=== PATIENT | female | born 1940 | race Caucasian/White ===

== ENCOUNTER 2023-09-25 23:34 | Inpatient (IN) | payer MEDICARE, OTHER, SELFPAY ==
[2023-09-25 16:04] VITALS: BP 130/76
[2023-09-25 16:05] VITALS: BP 130/76
[2023-09-25 16:21] LABS: % Basophils 0.5 % (0-2); % Eosinophils 0.9 % (0-6); % Immature Granulocytes 0.4 % (0-0.5); % Lymphocytes 14.5 % (20.5-51.1); % Monocytes 8.8 % (1.7-9.3); % Neutrophils 74.9 % (42.2-75.2); Absolute Basophils 0.1 10^3/uL (0-0.2); Absolute Eosinophils 0.1 10^3/uL (0-0.7); Absolute Lymphocytes 1.5 10^3/uL (1.2-3.4); Absolute Monocytes 0.9 10^3/uL (0.1-0.6); Absolute Neutrophils 7.9 10^3/uL (1.4-6.5); Hematocrit 35.1 % (37.0-47.0); Hemoglobin 11.5 g/dL (12.0-16.0); Mean Corp Hgb Conc. 32.8 g/dL (33.0-37.0); Mean Corpuscular Hgb 29.5 pg (27.0-31.0); Mean Platelet Volume 8.6 fL (7.4-10.4); Nucleated Red Blood Cells % 0 %; Platelet Count 223 10^3/uL (130-400); Red Cell Dist. Width 14.2 % (11.5-14.5); White Blood Cell Count 10.5 10^3/uL (4.8-10.8)
[2023-09-25 16:35] LABS: Blood Urea Nitrogen 29 mg/dl (7-17); Calcium 9.3 mg/dl (8.4-10.2); Carbon Dioxide 23 mmol/L (22-30); Chloride 103 mmol/L (98-107); Estimated Creatinine Clearance 38 ml/min; Glucose 91 mg/dl (70-99); Sodium 136 mmol/L (135-145); eGFR 50.48
[2023-09-25 17:38] VITALS: BP 144/76
[2023-09-25 17:48] LABS: Urine Albumin 2+ (Neg - Trace); Urine Bilirubin Negative (Negative); Urine Character Very Cloudy (Clear); Urine Color Yellow; Urine Glucose Negative (Negative); Urine Ketone Negative (Negative); Urine Leukocyte 2+ (Negative); Urine Nitrite Positive (Negative); Urine Occult Blood 4+ (Negative); Urine Urobilinogen Negative (Neg - 1+)
[2023-09-25 17:56] LABS: Urine Bacteria Moderate (Negative); Urine Red Blood Cell 30-40 /HPF (0-2); Urine Squamous Cell 0-2 /LPF (Few); Urine White Cell 90-100 /HPF (0-5)
[2023-09-25 18:00] VITALS: BP 130/86
[2023-09-25 19:00] VITALS: BP 144/78
[2023-09-25] MEDS: MORPHINE SULFATE 2 MG IV (20:13)
[2023-09-25] MEDS: ROCEPHIN 1000 MG IV (20:13)
--- NOTE | 2023-09-25 20:28 | ED.GENMED ---
History of Present Illness
General
Chief Complaint: Urinary Symptoms
Source: patient
Time Seen by Provider: 09/25/23 19:43
Travel History
Have you had any contact with someone who has COVID-19?: No
Do you have any symptoms of coronavirus? Fever > 100 degrees, chills, cough, shortness of breath, sore throat, loss of taste or smell, muscle aches, or headache?: No
History of Present Illness
History of Present Illness:
83-year-old female with past medical history of hypertension, hyperlipidemia, essential tremor, previous GI bleeding, left ureteral dysfunction presenting to the emergency department for evaluation of generalized weakness, difficulty ambulating,
left flank pain and dysuria/urinary frequency. Patient states she is prone to urinary tract infections and believes to have another 1. She denies any fevers, nausea, vomiting, bowel changes. She notes that she has been in and out of the hospital
recently as well as a few rehab facilities following her hospitalizations. She follows with urology, Dr. Rodas, and has had multiple urological procedures done in the past. No other concerns at this time.
Past History
Past History
ED Past Medical History: HTN, Hypercholesterolemia, Psychiatric, Other (lumbar compr fx) and Other (kidney stones)
ED Past Surgical History: Appendectomy, Orthopedic (Right wrist ORIF, vertebraplasty), Tonsilectomy, Urological and Other (Hernia repair, cataract surgery)
Social History
Tobacco: Non-smoker
Alcohol: Occasional
Drug: None
Personal: Single
Living: alone
Employment: Retired
Review of Systems
Review of Systems
All Other Systems: ROS reviewed and negative except as documented in HPI and ROS
Phy Exam
Physical Exam
Physical Exam:
GENERAL: Alert , in no apparent distress, essential tremor
EYE: clear conjunctiva b/l
HEAD: NCAT
ENT: o/p clr, mmm.
CARDIAC: Regular rate and rhythm .
LUNGS: Clear breath sounds bilaterally, no acute respiratory distress, no wheezes/rales/rhonchi
ABDOMEN: Soft, without focal tenderness, no r/g, no cvat
NEUROLOGICAL: Alert and oriented x 3
SKIN: Warm and dry, skin intact.
MUSCULOSKELETAL: No edema, well perfused.
PSYCH: Normal and appropriate interaction.
Scores
Heart Failure Risk
Heart Failure Risk Score: Not Applicable
Heart Score for Chest Pain Patients
STEMI patient?: Not applicable
Withdrawal Assessment of Alcohol
Withdrawal Assessment Completed?: Not applicable
Course
Orders/Labs/Results
Orders:
Orders
09/25/23 16:10
Basic Metabolic Panel Urgent
Complete Blood Count/With Diff Urgent
Urinalysis Reflex To Culture Urgent
Date Specimen was Collected: 09/25/23
Time Specimen was Collected: 16:07
Urine Microscopic Reflex Cult Urgent
Urine Culture Urgent
CARLIE Source: U
Specimen Description:
Date Specimen was Collected: 09/25/23
Time Specimen was Collected: 16:07
09/25/23 19:43
CT Abd/pel Without Iv Or Oral Urgent
Comment:
Reason For Exam: left flank pain, UTI, pyelo vs stone?
CefTRIAXone [Rocephin] 1,000 mg IV NOW STA
09/25/23 19:49
Morphine Sulfate 2 mg IV NOW STA
09/25/23 20:10
Sterile Water [Sterile Water For Injection] 10 ml .ROUTE .STK-MED ONE
Abnormal Lab Results
09/25/23
16:10
RBC 3.90 L 10^6/uL
(4.20-5.40)
Hgb 11.5 L g/dL
(12.0-16.0)
Hct 35.1 L %
(37.0-47.0)
MCHC 32.8 L g/dL
(33.0-37.0)
Absolute Neuts (auto) 7.9 H 10^3/uL
(1.4-6.5)
Absolute Monos (auto) 0.9 H 10^3/uL
(0.1-0.6)
Lymphocytes % 14.5 L %
(20.5-51.1)
BUN 29 H mg/dl
(7-17)
Creatinine 1.1 H mg/dL
(0.6-1.0)
Ur Occult Blood Reflex 4+ A
(Negative)
Urine Nitrite (Reflex) Positive A
(Negative)
Leukocyte Esterase Rfl 2+ A
(Negative)
Urine RBC 30-40 A /HPF
(0-2)
Urine WBC (Reflex) 90-100 A /HPF
(0-5)
Urine Bacteria (Reflex) Moderate A
(Negative)
Urine Albumin (Reflex) 2+ A
(Neg - Trace)
09/25/23 16:10
09/25/23 16:10
Vital Signs
Initial and Last Documented VS:
Initial Vital Signs
Temp Pulse Resp BP Pulse Ox
98.1 F 64 18 130/76 96
09/25/23 16:04 09/25/23 16:04 09/25/23 16:04 09/25/23 16:04 09/25/23 16:04
Last Documented Vital Signs
Temp Pulse Resp BP Pulse Ox
98.1 F 64 18 144/78 92
09/25/23 16:04 09/25/23 16:04 09/25/23 16:04 09/25/23 19:00 09/25/23 19:45
MDM/Problems Addressed
Differential Diagnosis Includes:
Cystitis, pyelonephritis, renal/ureteral colic, infected kidney stone, acute kidney injury
MDM/Problems Addressed:
83-year-old female presenting emergency department for evaluation of left-sided flank pain, generalized weakness and urinary symptoms. History of urinary tract infections. Labs and urine have been ordered from triage and there is no leukocytosis,
patient's renal function is at her baseline, urinalysis reveals nitrite positive urine with 90-100 WBCs. I added on a CT scan of the abdomen and pelvis to rule out stones. Given her age and chronic medical conditions patient may need admission for
IV antibiotics and monitoring. Reassessment following
*Radiology
Radiology exam reviewed: radiology read reviewed
*Pulse Oximetry
Patient hypoxic: no
*Critical Care Note
Total Time (30-74mins, 75-104mins- exclusive of procedures): Not Applicable
Data Reviewed
Review of Other/Old Records Reveals: Labs (Patient's previous urine cultures show Kristin albicans. She was treated for similar in the past with antibiotics with improvement.) and Records
Source: patient
Patient Management
Discussion with other providers: Hospitalist
Escalation/DeEscalation of care consider admission/obs:
Due to patient's age and chronic UTIs combined with her anatomical disorders leading to your Zak tract infections I do feel would be best for patient to be admitted for IV antibiotics and monitoring. Patient is in agreement with plan. Hospitalist
team is aware and accepts for continued evaluation and treatment.
ED Attending Note
-
Portions of this chart may have been created with voice recognition software.� Occasional wrong word or��sound alike� substitutions may have occurred due to the inherent limitations of voice recognition software.
Discharge Plan
Departure
Patient Disposition: Admit
Date of Disposition: 09/25/23
Time of Disposition: 21:10
Presentation/result/management discussed w/ accepting MD/DO: Hospitalist
Discharge Problem:
Pyelonephritis
Prescriptions:
No Action
melatonin 10 MG tablet
10 mg PO HS
PreserVision AREDS 1 CAP capsule
1 cap PO BID
gabapentin 300 MG capsule
300 mg PO BID
primidone 50 mg Tablet
50 mg PO DAILY
atorvastatin [Lipitor] 10 mg Tablet
10 mg PO DAILY
propranolol 60 mg Capsule,Extended Release 24 Hr
60 mg PO DAILY
sertraline 100 mg Tablet
100 mg PO DAILY
Theragen Tablet
1 tab PO DAILY
ciprofloxacin HCl [Cipro] 500 mg Tablet
500 mg PO BID
calcium carbonate [Calcium 600] 600 mg calcium (1,500 mg) Tablet
600 mg PO DAILY
ibuprofen [Advil] 200 mg Tablet
200 mg PO Q8HPRN PRN (Reason: mild pain)
estradiol [Estrace] 0.01 % (0.1 mg/gram) Cream
1 appful VAGINAL Q48H
lutein 20 mg Capsule
20 mg PO DAILY
cholecalciferol (vitamin D3) [Vitamin D3] 25 mcg (1,000 unit) Tablet
25 mcg PO DAILY
Refresh Optive 0.5-0.9 % Drops
1 drp BOTH EYES QIDPRN PRN (Reason: dryness)
Referrals:
Nubia Mix CRNP [Family Provider] -
Interventions
Interventions:
*Risk Screen - Suicide Last Done: 09/25/23 16:05
*General Assessment Last Done: 09/25/23 16:05
*Neglect/Abuse Screening Last Done: 09/25/23 16:05
*ED COVID-19 Vaccine History Last Done: 09/25/23 16:05
ED-Female Genitourinary Assessment Last Done: 09/25/23 16:08
Discharge Date and Time
Print Language: MONGOLIAN
--- NOTE | 2023-09-25 23:43 | HPS.HSE ---
Family Physician
-
Family Physician: NAPOLEON Ohara
Chief Complaint
-
urinary symptoms
History of Present Illness
83-year-old female with past medical history of kidney stones, left ureteral stricture with prior left ureteral stent, frequent UTIs, hypertension, hyperlipidemia, lumbar compression fractures, anxiety/depression, obesity, neuropathy, osteoporosis,
essential tremor, presenting with generalized weakness, difficulty ambulating, burning with urination increased urinary frequency since yesterday. She did have some slight left flank pain earlier. Denies any blood in the urine or urinary
retention. Patient denies fevers or nausea or vomiting. She does some diarrhea yesterday which is since resolved.
She drinks alcohol occasionally. Denies smoking. She has chronic tremor worse in the right hand which is at baseline.
Medical History
Past Medical History
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
tremor,)
Past Surgical History: Reports Other (Appendectomy, Orthopedic (Right wrist ORIF, vertebraplasty), Tonsilectomy, Urological and Other (Hernia repair, cataract surgery))
Social History
Tobacco: Non-smoker
Alcohol: Occasional
Drug: None
Family History
Family History: Not pertinent
Allergies / Home Medications
Allergies reflects when Allergies were last updated in [facility].
Home Medications with original date entered in [facility]
Allergy/Medication List:
Allergies
Allergy/AdvReac Type Severity Reaction Status Date / Time
crab Allergy SOFT Verified 09/25/23 23:08
SHELL-HIVES
No Known Drug Allergies Allergy NA Verified 09/25/23 23:08
shrimp Allergy ABDOMINAL Verified 09/25/23 23:08
PAIN/FLUSHING
Home Medications
melatonin 10 mg tablet 10 mg PO HS 10/11/19
vitamins A,C,V-turv-bosber 4,296 mcg-226 mg-90 mg capsule (PreserVision AREDS) 1 cap PO BID Supplement 10/07/20
gabapentin 300 mg capsule 300 mg PO BID Neurological Condition 07/24/21
atorvastatin 10 mg tablet (Lipitor) 10 mg PO DAILY 09/25/23
calcium carbonate (Calcium 600) 600 mg PO DAILY 09/25/23
carboxymethylcellulose 0.5 %-glycerin 0.9 % eye drops (Refresh Optive) 1 drp BOTH EYES QIDPRN PRN dryness 09/25/23
cholecalciferol (vitamin D3) 25 mcg (1,000 unit) tablet (Vitamin D3) 25 mcg PO DAILY 09/25/23
ciprofloxacin HCl 500 mg tablet (Cipro) 500 mg PO BID 09/25/23
estradiol 0.01% (0.1 mg/gram) vaginal cream (Estrace) 1 appful vaginal Q48H 09/25/23
ibuprofen 200 mg tablet (Advil) 200 mg PO Q8HPRN PRN mild pain 09/25/23
lutein 20 mg capsule 20 mg PO DAILY 09/25/23
primidone 50 mg tablet 50 mg PO DAILY 09/25/23
propranolol 60 mg capsule,24 hr,extended release 60 mg PO DAILY 09/25/23
sertraline 100 mg tablet 100 mg PO DAILY 09/25/23
therapeutic multivitamin 1 tab PO DAILY 09/25/23
Review of Systems
-
History Source: Patient
A 12 point ROS was completed and negative except as noted: Yes
Constitutional: Reports No Symptoms
EENT: Reports No Symptoms
Respiratory: Reports No Symptoms
Cardiac: Reports No Symptoms
Abdomen/GI: Reports No Symptoms
: Reports See HPI
Musculoskeletal: Reports No Symptoms
Skin: Reports No Symptoms
Neurological: Reports No Symptoms
Endocrine: Reports No Symptoms
Hematologic/Lymphatic: Reports No Symptoms
Psych: Reports No Symptoms
Physical Exam
Vital Signs
Vital Signs
Temp Pulse Resp BP Pulse Ox
98.1 F 64 18 144/78 92
09/25/23 16:04 09/25/23 16:04 09/25/23 16:04 09/25/23 19:00 09/25/23 19:45
Physical Exam
General: Well Developed, Well Nourished and No Apparent Distress
HEENT: NormoCephalic, Moist mucous membranes and Atraumatic
Respiratory: Clear
Cardiac: S1/S2 and Regular Rhythm; No Murmur or Rub
GI: Soft, Non Tender, Non Distended and Normal Bowel Sounds; No Organomegaly
Rectal: Deferred by Provider
Musculoskeletal: No Clubbing, No Cyanosis and No Edema
Skin: No Rash
Neuro: Nonfocal/grossly intact
Laboratory Results
-
09/25/23 16:10
09/25/23 16:10
Laboratory Results
Total Bilirubin Cancelled 09/25/23 16:10
AST Cancelled 09/25/23 16:10
ALT Cancelled 09/25/23 16:10
Alkaline Phosphatase Cancelled 09/25/23 16:10
Data Reviewed
-
Lab Data: Labs Reviewed by me
Old Records: Reviewed
Impression/Plan
-
IMPRESSION:
PLAN:
# Complicated UTI
# Worsening of chronic left hydronephrosis
# Congenital UPJ left
-UA shows 9200 WBC, +2 leukocyte esterase, nitrites
-CT abdomen pelvis shows mid pole large stable renal pelvis calculi measuring 2.5 cm without ureteral calculus, mild distention of right ureter/intrarenal collecting system similar to prior, chronic moderate hydronephrosis increased since prior
examination, 2 tiny submillimeter calculi present within the distended extrarenal pelvis, abrupt transition between renal pelvis and proximal ureter consistent with element of congenital UPJ without evidence of definitive ureteral stone
-Check urine culture
-IV fluids
-Ceftriaxone
-Urology consulted for potential stent if no improvement
#Renal calculi
#History of left ureteral stricture prior left ureteral stent
#Chronic kidney disease
-Renal function at baseline
Essential hypertension
Hyperlipidemia
-Continue statin
History of lumbar compression fractures
Anxiety/depression
-Continue sertraline
Obesity
Neuropathy
-Continue gabapentin
Essential tremor
-Continue propranolol, primidone
Osteoporosis
Full code
DVT prophylaxis�heparin
Regular diet
[2023-09-26] VITALS (10 sets, daily range): BP systolic 109–156; BP diastolic 59–93; BMI 34.5; BMI 35.4
[2023-09-26] MEDS: NSS 1000 IV (02:03)
[2023-09-26 05:21] LABS: % Basophils 0.6 % (0-2); % Eosinophils 2.1 % (0-6); % Immature Granulocytes 0.4 % (0-0.5); % Lymphocytes 17.7 % (20.5-51.1); % Monocytes 9.4 % (1.7-9.3); % Neutrophils 69.8 % (42.2-75.2); Absolute Basophils 0.1 10^3/uL (0-0.2); Absolute Eosinophils 0.2 10^3/uL (0-0.7); Absolute Lymphocytes 1.5 10^3/uL (1.2-3.4); Absolute Monocytes 0.8 10^3/uL (0.1-0.6); Absolute Neutrophils 5.9 10^3/uL (1.4-6.5); Hematocrit 32.7 % (37.0-47.0); Hemoglobin 10.5 g/dL (12.0-16.0); Mean Corp Hgb Conc. 32.1 g/dL (33.0-37.0); Mean Corpuscular Hgb 29.5 pg (27.0-31.0); Mean Corpuscular Volume 91.9 fL (81.0-99.0); Mean Platelet Volume 8.5 fL (7.4-10.4); Nucleated Red Blood Cells % 0 %; Platelet Count 179 10^3/uL (130-400); Red Blood Cell Count 3.56 10^6/uL (4.20-5.40); Red Cell Dist. Width 13.8 % (11.5-14.5); White Blood Cell Count 8.4 10^3/uL (4.8-10.8)
--- NOTE | 2023-09-26 07:01 | W.PN.HOSP.TC ---
Addendum entered and electronically signed by Chip De León MD 09/26/23 07:56:
Patient still serum calcium at 5.6 actually corrected to patient's hypoalbuminemia of only 2.0 creates a corrected calcium of 7.19 I will measure a ionized calcium but would not replete IV calcium at this point as patient also on ceftriaxone and
will have interaction
Will replete hypokalemia with potassium rider
Nongap metabolic acidosis with a bicarb of 16 give sodium bicarb.
Original Note:
Today's Communication/Plan
-
Continue empiric antibiotic coverage
Await urine culture results
Await urology input in regards to chronic UPJ obstruction and flank pain
Continue IV fluids
Assessment / Plan
Assessment / Plan
83-year-old female with past medical history of kidney stones, left ureteral stricture with prior left ureteral stent, frequent UTIs, hypertension, hyperlipidemia, lumbar compression fractures, anxiety/depression, obesity, neuropathy, osteoporosis,
essential tremor, presenting with generalized weakness, difficulty ambulating, burning with urination increased urinary frequency since yesterday. She did have some slight left flank pain earlier. Denies any blood in the urine or urinary
retention. Patient denies fevers or nausea or vomiting. She does some diarrhea yesterday which is since resolved.
She drinks alcohol occasionally. Denies smoking. She has chronic tremor worse in the right hand which is at baseline.
# Complicated UTI
# Worsening of chronic left hydronephrosis
# Congenital UPJ left
-UA shows 9200 WBC, +2 leukocyte esterase, nitrites
-CT abdomen pelvis shows mid pole large stable renal pelvis calculi measuring 2.5 cm without ureteral calculus, mild distention of right ureter/intrarenal collecting system similar to prior, chronic moderate hydronephrosis increased since prior
examination, 2 tiny submillimeter calculi present within the distended extrarenal pelvis, abrupt transition between renal pelvis and proximal ureter consistent with element of congenital UPJ without evidence of definitive ureteral stone
-Check urine culture
-IV fluids to continue
-Ceftriaxone
-Urology consulted for potential stent if no improvement
#Renal calculi
#History of left ureteral stricture prior left ureteral stent
#Chronic kidney disease
-Renal function at baseline
Essential hypertension
Hyperlipidemia
-Continue statin
History of lumbar compression fractures
Anxiety/depression
-Continue sertraline
Obesity
Neuropathy
-Continue gabapentin
Essential tremor
-Continue propranolol, primidone
Osteoporosis
Full code
DVT prophylaxis�heparin
Regular diet
Anticipated Discharge: Within 24 hours
Subjective/Interval History
-
Date of Service: September 26, 2023
Comparison discomfort in her shoulders and her neck from laying in the ER later overnight as her only complaint denies any abdominal pain presently
Objective Data
-
Labs:
Laboratory Results
09/26/23 09/26/23
05:10 06:08
WBC 8.4
Hgb 10.5 L
Hct 32.7 L
Plt Count 179
Sodium Cancelled Pending
Potassium Cancelled Pending
Chloride Cancelled Pending
Carbon Dioxide Cancelled Pending
BUN Cancelled Pending
Creatinine Cancelled Pending
Glucose Cancelled Pending
Calcium Cancelled Pending
Total Bilirubin Cancelled Pending
AST Cancelled Pending
ALT Cancelled Pending
Alkaline Phosphatase Cancelled Pending
Vital Signs:
Vital Signs
Temp Pulse Resp BP Pulse Ox
98 F 66 18 126/74 94
09/26/23 06:19 09/26/23 06:19 09/26/23 06:19 09/26/23 06:19 09/26/23 06:19
I&O
09/25/23 09/26/23 09/27/23
06:59 06:59 06:59
Output Total 200 / 200
Balance -200 / -200
Review of Systems
-
History Source: Patient
Genitourinary: Reports No Symptoms and Frequency
Musculoskeletal: Reports Muscle Pain
Physical Exam
-
General: Well Developed
HEENT: Normocephalic
Respiratory: Clear to Auscultation
Cardiac: Regular Rhythm
GI: Soft, Nontender and Nondistended
Psych: Calm
Data Reviewed
-
Total Time Spent with Patient (in minutes): 45
Medical Tests (Nuc Med, Echo etc): Report Reviewed by me (CT abdomen shows increasing left chronic moderate hydronephrosis from prior prior congenital UPJ obstruction)
Labs: Labs Reviewed by me (White count 8.4/hemoglobin 10.5/pending creatinine at presentation yesterday on admission 1.1 at her baseline)
[2023-09-26 07:16] LABS: ALT (SGPT) < 10 U/L (0-35); AST (SGOT) 20 U/L (14-36); Alkaline Phosphatase 45 U/L (38-126); Blood Urea Nitrogen 16 mg/dl (7-17); Calcium 5.6 mg/dl (8.4-10.2); Carbon Dioxide 16 mmol/L (22-30); Chloride 120 mmol/L (98-107); Estimated Creatinine Clearance 69 ml/min; Glucose 56 mg/dl (70-99); Potassium 2.6 mmol/L (3.5-5.1); Sodium 141 mmol/L (135-145); Total Bilirubin 0.3 mg/dl (0.2-1.3); Total Protein 4.4 g/dl (6.3-8.2); eGFR > 60.00
[2023-09-26] MEDS: KCL 270 MEQ IV (10:14)
[2023-09-26] MEDS: HEPARIN 5000 UNITS SC ×2 (10:16→20:22)
[2023-09-26] MEDS: MYSOLINE 50 MG PO (10:17)
[2023-09-26] MEDS: LIPITOR 10 MG PO (10:17)
[2023-09-26] MEDS: INDERAL LA 60 MG PO (10:17)
[2023-09-26] MEDS: OSCAL CAL 500 500 MG PO (10:18)
[2023-09-26] MEDS: ZOLOFT 100 MG PO (10:18)
[2023-09-26] MEDS: OCUVITE SOFTGEL 1 CAP PO ×2 (10:18→20:23)
[2023-09-26] MEDS: SODIUM BICARBONATE 1075 MEQ IV ×2 (10:18→20:22)
[2023-09-26] MEDS: THERAGRAN 1 TABLET PO (10:18)
[2023-09-26] MEDS: NEURONTIN 300 MG PO ×2 (10:18→20:24)
[2023-09-26] MEDS: VITAMIN D3 (cholecalciferol) 25 MCG PO (10:18)
[2023-09-26 10:57] LABS: Ionized Calcium 1.14 mMOL/L (1.15-1.33)
[2023-09-26] MEDS: ESTRACE 0.01% VAGINAL CREAM VAG (10:57)
[2023-09-26 12:20] LABS: Magnesium 1.3 mg/dl (1.6-2.3)
--- NOTE | 2023-09-26 12:23 | W.PN.URO.CBU ---
Today's Communication / Plan
-
per hospitalist no guintervention indicated
Assessment / Plan
-
change in mental staus woth electrolyte dosorders but no pointing focal gu etilolgioes for now pt is progreesing and not in need of perc tube or jj stent iterventions If stable woulf discharge on targetd po abs and have pt foow ith dr bianchi
for definitive tx of renal diseases
Diagnosis
-
Date of Service: September 26, 2023
-
Patient Diagnosis:uti porly fnctioniong left kidney and rt [place] no fervc hils but mental staus change no colic no [id number]
Post Op Day:
Subjective
-
asx from [facility]
Objective
-
Vital Signs
Temp Pulse Resp BP Pulse Ox
98.1 F 71 16 126/93 100
09/26/23 10:09 09/26/23 10:09 09/26/23 10:09 09/26/23 10:09 09/26/23 11:19
Intake and Output
09/25/23 09/26/23 09/27/23
06:59 06:59 06:59
Intake Total 575 / 575
Output Total 200 / 200
Balance -200 / -200 575 / 575
Intake:
IV fluids (Total) 575 / 575
NSS 575 / 575
Output:
Urine, Voided 200 / 200
Laboratory Results
09/26/23 05:10
09/26/23 06:08
Review of Systems
-
Abdomen/GI: No Symptoms
: No Symptoms
Physical Exam
-
General - well developed, well nourished, no acute distress
Chest - clear bilaterally
Abdomen - soft, non-tender, positive bowel sounds, no CVAT, no incisional pain or distention
Genitalia - normal
Rectal - normal
Skin - warm & dry with no rash
Neuro - AOx3, no motor deficits
Extremities - no clubbing, no cyanosis, no edema
Incision - clean, dry
Dressing - clean, dry, intact
Care Review
Data Reviewed
Discussed with: Hospitalist and Nursing
CT Scan: Image Pers Reviewed
[2023-09-26] MEDS: MAGNESIUM SULFATE 50 IV (13:09)
[2023-09-26] MEDS: ROCEPHIN 1000 MG IV (20:24)
[2023-09-26] MEDS: STERILE WATER FOR INJECTION 10 ML IV (20:26)
[2023-09-26] MEDS: MELATONIN 10 MG PO (20:30)
[2023-09-27 07:00] VITALS: BP 138/74
[2023-09-27] MEDS: NEURONTIN 300 MG PO ×2 (07:41→20:19)
[2023-09-27] MEDS: OSCAL CAL 500 500 MG PO (07:42)
[2023-09-27] MEDS: HEPARIN 5000 UNITS SC ×2 (07:42→20:19)
[2023-09-27] MEDS: VITAMIN D3 (cholecalciferol) 25 MCG PO (07:42)
[2023-09-27] MEDS: MYSOLINE 50 MG PO (07:42)
[2023-09-27] MEDS: ZOLOFT 100 MG PO (07:42)
[2023-09-27] MEDS: THERAGRAN 1 TABLET PO (07:42)
[2023-09-27] MEDS: OCUVITE SOFTGEL 1 CAP PO ×2 (07:42→20:20)
[2023-09-27] MEDS: LIPITOR 10 MG PO (07:42)
[2023-09-27] MEDS: INDERAL LA 60 MG PO (07:42)
[2023-09-27 07:44] LABS: Hematocrit 33.6 % (37.0-47.0); Hemoglobin 11.2 g/dL (12.0-16.0); Mean Corp Hgb Conc. 33.3 g/dL (33.0-37.0); Mean Corpuscular Hgb 29.9 pg (27.0-31.0); Mean Corpuscular Volume 89.6 fL (81.0-99.0); Platelet Count 196 10^3/uL (130-400); Red Blood Cell Count 3.75 10^6/uL (4.20-5.40); Red Cell Dist. Width 13.4 % (11.5-14.5); White Blood Cell Count 5.6 10^3/uL (4.8-10.8)
--- NOTE | 2023-09-27 08:05 | W.PN.HOSP.TC ---
Today's Communication/Plan
-
Continue present course of ceftriaxone awaiting culture results
Spoke to urology [facility] consultant
Will need to replete magnesium, bicarb continue IV fluids awaiting pending labs
Treat constipation
Assessment / Plan
Assessment / Plan
83-year-old female with past medical history of kidney stones, left ureteral stricture with prior left ureteral stent, frequent UTIs, hypertension, hyperlipidemia, lumbar compression fractures, anxiety/depression, obesity, neuropathy, osteoporosis,
essential tremor, presenting with generalized weakness, difficulty ambulating, burning with urination increased urinary frequency since yesterday. She did have some slight left flank pain earlier. Denies any blood in the urine or urinary
retention. Patient denies fevers or nausea or vomiting. She does some diarrhea yesterday which is since resolved.
She drinks alcohol occasionally. Denies smoking. She has chronic tremor worse in the right hand which is at baseline.
# Complicated UTI
# Worsening of chronic left hydronephrosis
# Congenital UPJ left
-UA shows 9200 WBC, +2 leukocyte esterase, nitrites
-CT abdomen pelvis shows mid pole large stable renal pelvis calculi measuring 2.5 cm without ureteral calculus, mild distention of right ureter/intrarenal collecting system similar to prior, chronic moderate hydronephrosis increased since prior
examination, 2 tiny submillimeter calculi present within the distended extrarenal pelvis, abrupt transition between renal pelvis and proximal ureter consistent with element of congenital UPJ without evidence of definitive ureteral stone
-Check urine culture
-IV fluids to continue
-Ceftriaxone
-Urology consulted for potential stent if no improvement
#Renal calculi
# Nongap metabolic acidosis
-Hypocalcemia with corrected calcium to 7.2 noting albumin of 2.0
-Repleted hypomagnesemia 1.3 pending labs today
-Await today's labs adjust IV fluids
#History of left ureteral stricture prior left ureteral stent
#Chronic kidney disease
-Renal function at baseline
Essential hypertension
Hyperlipidemia
-Continue statin
History of lumbar compression fractures
Anxiety/depression
-Continue sertraline
Obesity
Neuropathy
-Continue gabapentin
Essential tremor
-Continue propranolol, primidone
Osteoporosis
Full code
DVT prophylaxis�heparin
Regular diet
Anticipated Discharge: 24 - 48 hours
Subjective/Interval History
-
Date of Service: September 27, 2023
Patient has not had a bowel in days denies flank pain pleasingly
Objective Data
-
Labs:
Laboratory Results
09/27/23
07:12
WBC Pending
Hgb Pending
Hct Pending
Plt Count Pending
Sodium Pending
Potassium Pending
Chloride Pending
Carbon Dioxide Pending
BUN Pending
Creatinine Pending
Glucose Pending
Calcium Pending
Vital Signs:
Vital Signs
Temp Pulse Resp BP Pulse Ox
97.5 F 64 18 138/74 93
09/27/23 07:00 09/27/23 07:00 09/27/23 07:00 09/27/23 07:00 09/27/23 07:00
I&O
09/26/23 09/27/23 09/28/23
06:59 06:59 06:59
Intake Total 675 / 675
Output Total 200 / 200 150 / 150
Balance -200 / -200 525 / 525
Review of Systems
-
History Source: Patient
Constitutional: Reports No Symptoms
Respiratory: Reports No Symptoms
Cardiac: Reports No Symptoms
Abdomen/GI: Reports Constipated
Physical Exam
-
General: Well Nourished
HEENT: Normocephalic
Respiratory: Clear to Auscultation
Cardiac: Regular Rhythm
GI: Soft, Nontender and Nondistended
Neuro: Tremors
Psych: Calm
Data Reviewed
-
Total Time Spent with Patient (in minutes): 50
Medical Tests (Nuc Med, Echo etc): Report Reviewed by me
Labs: Labs Reviewed by me (Pending today's labs/had low magnesium one 1.3 yesterday/ionized calcium 1.14/albumin 2.0 with a calcium of 5.6/corrected to 7.2/)
[2023-09-27 08:17] LABS: Blood Urea Nitrogen 16 mg/dl (7-17); Calcium 8.4 mg/dl (8.4-10.2); Carbon Dioxide 27 mmol/L (22-30); Chloride 103 mmol/L (98-107); Estimated Creatinine Clearance 52 ml/min; Glucose 82 mg/dl (70-99); Sodium 135 mmol/L (135-145); eGFR > 60.00
[2023-09-27] MEDS: SENOKOT-S 1 TABLET PO (09:20)
[2023-09-27] MEDS: SODIUM BICARBONATE 1075 MEQ IV (10:03)
--- NOTE | 2023-09-27 10:57 | CM ---
Reviewed chart, met with patient to obtain information for assessment. Patient stated that she lives alone in [facility]. She was at their rehab ([facility]) for a few weeks and recently came back home. She described herself as in need of
assistance with ADLs, personal care, bathing, dressing and ambulates with a rollator and a scooter for longer distances. She gets one meal a day at the community and she relies on an aide who her daughter hired 7 days a week for all ADLs, bathing,
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
She denied any other DME besides the Rollator and electric w/c.
Patient has a prescription plan and uses [facility] in [place] for all of her medications.
Her PCP is Evelin BENDER
Patient stated that she is hoping to be able to return home with her aides when she is medically cleared for discharge. She stated that if there are any concerns or questions about discharge planning, she would like to defer to her daughter, Emilee,
or her son if Emilee is not available.
Plan: Case management will continue to follow and assist with discharge planning. Tentative plan is for patient to return home with her daily aides and support of her daughter who lives close. Patient hoping to be able to avoid rehab.
--- NOTE | 2023-09-27 13:12 | W.PN.URO.CBU ---
Today's Communication / Plan
-
no gu intervention
Assessment / Plan
-
change in mental staus woth electrolyte dosorders but no pointing focal gu etilolgioes for now pt is progreesing and not in need of perc tube or jj stent iterventions If stable woulf discharge on targetd po abs and have pt foow ith dr bianchi
for definitive tx of renal diseases
Diagnosis
-
Date of Service: September 27, 2023
-
Patient Diagnosis:
Post Op Day:
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
Post Op Day:
Subjective
-
feels better
Objective
-
Vital Signs
Temp Pulse Resp BP Pulse Ox
97.5 F 64 18 138/74 93
09/27/23 07:00 09/27/23 07:00 09/27/23 07:00 09/27/23 07:00 09/27/23 07:00
Intake and Output
09/26/23 09/27/23 09/28/23
06:59 06:59 06:59
Intake Total 675 / 675
Output Total 200 / 200 150 / 150
Balance -200 / -200 525 / 525
Intake:
Oral fluids 100 / 100
IV fluids (Total) 575 / 575
NSS 575 / 575
Output:
Urine, Voided 200 / 200 150 / 150
Other:
Number of approximated LARGE 1
amounts of urine
How many times incontinent 1
SMALL amount urine
How many times incontinent 1
MODERATE amount urine
How many times incontinent 1
SATURATED amount urine
Laboratory Results
09/27/23 07:12
09/27/23 07:12
Review of Systems
-
: No Symptoms
Physical Exam
-
General - well developed, well nourished, no acute distress
Chest - clear bilaterally
Abdomen - soft, non-tender, positive bowel sounds, no CVAT, no incisional pain or distention
Genitalia - normal
Rectal - normal
Skin - warm & dry with no rash
Neuro - AOx3, no motor deficits
Extremities - no clubbing, no cyanosis, no edema
Incision - clean, dry
Dressing - clean, dry, intact
Care Review
Data Reviewed
Discussed with: Hospitalist
CT Scan: Image Pers Reviewed
[2023-09-27 15:00] VITALS: BP 137/68
[2023-09-27] MEDS: STERILE WATER FOR INJECTION 10 ML IV (20:18)
[2023-09-27] MEDS: ROCEPHIN 1000 MG IV (20:18)
[2023-09-27] MEDS: MELATONIN 10 MG PO (20:20)
[2023-09-27] MEDS: MOTRIN 200 MG PO (20:21)
[2023-09-27 23:59] VITALS: BP 131/64
[2023-09-28 05:54] LABS: Hematocrit 32.3 % (37.0-47.0); Hemoglobin 10.5 g/dL (12.0-16.0); Mean Corp Hgb Conc. 32.5 g/dL (33.0-37.0); Mean Corpuscular Hgb 29.3 pg (27.0-31.0); Mean Corpuscular Volume 90.2 fL (81.0-99.0); Platelet Count 205 10^3/uL (130-400); Red Blood Cell Count 3.58 10^6/uL (4.20-5.40); Red Cell Dist. Width 13.3 % (11.5-14.5); White Blood Cell Count 5.4 10^3/uL (4.8-10.8)
[2023-09-28 06:26] LABS: Blood Urea Nitrogen 21 mg/dl (7-17); Calcium 8.8 mg/dl (8.4-10.2); Carbon Dioxide 27 mmol/L (22-30); Chloride 105 mmol/L (98-107); Estimated Creatinine Clearance 42 ml/min; Glucose 90 mg/dl (70-99); Potassium 3.8 mmol/L (3.5-5.1); Sodium 136 mmol/L (135-145)
[2023-09-28 07:00] VITALS: BP 138/69
--- NOTE | 2023-09-28 08:12 | W.PN.HOSP.TC ---
Today's Communication/Plan
-
Will transition to oral antibiotic for another 3 days
Obtain PT/OT eval as may need in the short-term. Rehab present lives independently and have my doubts as to function
Assessment / Plan
Assessment / Plan
83-year-old female with past medical history of kidney stones, left ureteral stricture with prior left ureteral stent, frequent UTIs, hypertension, hyperlipidemia, lumbar compression fractures, anxiety/depression, obesity, neuropathy, osteoporosis,
essential tremor, presenting with generalized weakness, difficulty ambulating, burning with urination increased urinary frequency since yesterday. She did have some slight left flank pain earlier. Denies any blood in the urine or urinary
retention. Patient denies fevers or nausea or vomiting. She does some diarrhea yesterday which is since resolved.
She drinks alcohol occasionally. Denies smoking. She has chronic tremor worse in the right hand which is at baseline.
# Complicated UTI/urine culture was negative however
# Worsening of chronic left hydronephrosis
# Congenital UPJ left
-UA shows 9200 WBC, +2 leukocyte esterase, nitrites
-CT abdomen pelvis shows mid pole large stable renal pelvis calculi measuring 2.5 cm without ureteral calculus, mild distention of right ureter/intrarenal collecting system similar to prior, chronic moderate hydronephrosis increased since prior
examination, 2 tiny submillimeter calculi present within the distended extrarenal pelvis, abrupt transition between renal pelvis and proximal ureter consistent with element of congenital UPJ without evidence of definitive ureteral stone
-Ceftriaxone>> transition to cefdinir 300 twice daily for another 3 days
-Urology consulted for potential stent if no improvement /with improvement will follow as outpatient
#Renal calculi
# Nongap metabolic acidosis/
-Hypocalcemia with corrected calcium to 7.2 noting albumin of 2.0
-Repleted hypomagnesemia 1.3 pending labs today
#History of left ureteral stricture prior left ureteral stent
#Chronic kidney disease
-Renal function at baseline
Essential hypertension
Hyperlipidemia
-Continue statin
History of lumbar compression fractures
Anxiety/depression
-Continue sertraline
Obesity
Neuropathy
-Continue gabapentin
Essential tremor
-Continue propranolol, primidone
-Physical therapy occupational therapy may need short-term rehab or higher level of care from her present independent living
Osteoporosis
Full code
DVT prophylaxis�heparin
Regular diet
Anticipated Discharge: Within 24 hours
Subjective/Interval History
-
Date of Service: September 28, 2023
No new symptoms or complaints woke from sleep without distress.
Objective Data
-
Labs:
Laboratory Results
09/28/23
05:26
WBC 5.4
Hgb 10.5 L
Hct 32.3 L
Plt Count 205
Sodium 136
Potassium 3.8
Chloride 105
Carbon Dioxide 27
BUN 21 H
Creatinine 1.0
Glucose 90
Calcium 8.8
Vital Signs:
Vital Signs
Temp Pulse Resp BP Pulse Ox
98.1 F 69 18 131/64 96
09/27/23 23:59 09/27/23 23:59 09/27/23 23:59 09/27/23 23:59 09/27/23 23:59
I&O
09/27/23 09/28/23 09/29/23
06:59 06:59 06:59
Intake Total 675 / 675 900 / 900
Output Total 150 / 150
Balance 525 / 525 900 / 900
Review of Systems
-
Unable to obtain full review of systems at this time due to: Dementia
History Source: Patient
Respiratory: Reports No Symptoms
Cardiac: Reports No Symptoms
Abdomen/GI: Reports No Symptoms
Physical Exam
-
General: Well Developed
HEENT: Normocephalic
Respiratory: Clear to Auscultation
Cardiac: Regular Rhythm
GI: Soft
Skin: Warm
Neuro: Awake and Tremors
Psych: Calm and Apparent Dementia
Data Reviewed
-
Total Time Spent with Patient (in minutes): 45
Medical Tests (Nuc Med, Echo etc): Report Reviewed by me
Labs: Labs Reviewed by me
[2023-09-28] MEDS: LIPITOR 10 MG PO (09:17)
[2023-09-28] MEDS: ZOLOFT 100 MG PO (09:17)
[2023-09-28] MEDS: OCUVITE SOFTGEL 1 CAP PO ×2 (09:17→21:33)
[2023-09-28] MEDS: HEPARIN 5000 UNITS SC ×2 (09:17→21:32)
[2023-09-28] MEDS: VITAMIN D3 (cholecalciferol) 25 MCG PO (09:17)
[2023-09-28] MEDS: OSCAL CAL 500 500 MG PO (09:17)
[2023-09-28] MEDS: INDERAL LA 60 MG PO (09:17)
[2023-09-28] MEDS: THERAGRAN 1 TABLET PO (09:17)
[2023-09-28] MEDS: MYSOLINE 50 MG PO (09:17)
[2023-09-28] MEDS: NEURONTIN 300 MG PO ×2 (09:18→21:32)
[2023-09-28] MEDS: ESTRACE 0.01% VAGINAL CREAM 1 APPLIC VAG (09:19)
--- NOTE | 2023-09-28 09:48 | W.PN.URO.CBU ---
Today's Communication / Plan
-
per hospitalist no gu interventions
Assessment / Plan
-
change in mental staus woth electrolyte dosorders but no pointing focal gu etilolgioes for now pt is progreesing and not in need of perc tube or jj stent iterventions If stable woulf discharge on targetd po abs and have pt foow ith dr bianchi
for definitive tx of renal diseases
Diagnosis
-
Date of Service: September 28, 2023
-
Patient Diagnosis:
Post Op Day:
Patient Diagnosis:
Post Op Day:
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
Post Op Day:
Subjective
-
feelong better no colic no dysuria
Objective
-
Vital Signs
Temp Pulse Resp BP Pulse Ox
97.5 F 60 18 138/69 93
09/28/23 07:00 09/28/23 07:00 09/28/23 07:00 09/28/23 07:00 09/28/23 07:00
Intake and Output
09/27/23 09/28/23 09/29/23
06:59 06:59 06:59
Intake Total 675 / 675 900 / 900
Output Total 150 / 150
Balance 525 / 525 900 / 900
Intake:
Oral fluids 100 / 100 900 / 900
IV fluids (Total) 575 / 575
NSS 575 / 575
Output:
Urine, Voided 150 / 150
Other:
Number of approximated LARGE 1 3
amounts of urine
How many times incontinent 1
SMALL amount urine
How many times incontinent 1 1
MODERATE amount urine
How many times incontinent 1
SATURATED amount urine
Laboratory Results
09/28/23 05:26
09/28/23 05:26
Review of Systems
-
: No Symptoms
Physical Exam
-
General - well developed, well nourished, no acute distress
Chest - clear bilaterally
Abdomen - soft, non-tender, positive bowel sounds, no CVAT, no incisional pain or distention
Genitalia - normal
Rectal - normal
Skin - warm & dry with no rash
Neuro - AOx3, no motor deficits
Extremities - no clubbing, no cyanosis, no edema
Incision - clean, dry
Dressing - clean, dry, intact
Care Review
Data Reviewed
Discussed with: Hospitalist and Nursing
[2023-09-28 12:58] VITALS: BP 136/67; PULSE 58; O2SAT 94
[2023-09-28 14:56] VITALS: BP 127/62
[2023-09-28] MEDS: OMNICEF 300 MG PO (21:33)
[2023-09-28] MEDS: MELATONIN 10 MG PO (21:33)
[2023-09-28 23:54] VITALS: BP 133/63
[2023-09-29 08:06] VITALS: BP 140/75
[2023-09-29 08:46] VITALS: BP 140/81; PULSE 69; O2SAT 95
[2023-09-29] MEDS: ZOLOFT 100 MG PO (09:14)
[2023-09-29] MEDS: NEURONTIN 300 MG PO ×2 (09:14→19:41)
[2023-09-29] MEDS: OMNICEF 300 MG PO ×2 (09:14→19:41)
[2023-09-29] MEDS: LIPITOR 10 MG PO (09:14)
[2023-09-29] MEDS: VITAMIN D3 (cholecalciferol) 25 MCG PO (09:14)
[2023-09-29] MEDS: OCUVITE SOFTGEL 1 CAP PO ×2 (09:14→19:41)
[2023-09-29] MEDS: INDERAL LA 60 MG PO (09:14)
[2023-09-29] MEDS: MYSOLINE 50 MG PO (09:15)
[2023-09-29] MEDS: HEPARIN 5000 UNITS SC ×2 (09:15→19:40)
[2023-09-29] MEDS: OSCAL CAL 500 500 MG PO (09:15)
[2023-09-29] MEDS: THERAGRAN 1 TABLET PO (09:15)
[2023-09-29] MEDS: TYLENOL 650 MG PO (09:24)
--- NOTE | 2023-09-29 10:00 | W.PN.HOSP.TC ---
Today's Communication/Plan
-
dispo planning
Assessment / Plan
Assessment / Plan
83-year-old female with past medical history of kidney stones, left ureteral stricture with prior left ureteral stent, frequent UTIs, hypertension, hyperlipidemia, lumbar compression fractures, anxiety/depression, obesity, neuropathy, osteoporosis,
essential tremor, presenting with generalized weakness, difficulty ambulating, burning with urination increased urinary frequency since yesterday. She did have some slight left flank pain earlier. Denies any blood in the urine or urinary
retention. Patient denies fevers or nausea or vomiting. She does some diarrhea yesterday which is since resolved.
She drinks alcohol occasionally. Denies smoking. She has chronic tremor worse in the right hand which is at baseline.
# Complicated UTI/urine culture was polymicrobial; improved on IV Ceftriaxone
# Worsening of chronic left hydronephrosis
# Congenital UPJ left
-UA shows 9200 WBC, +2 leukocyte esterase, nitrites
-CT abdomen pelvis shows mid pole large stable renal pelvis calculi measuring 2.5 cm without ureteral calculus, mild distention of right ureter/intrarenal collecting system similar to prior, chronic moderate hydronephrosis increased since prior
examination, 2 tiny submillimeter calculi present within the distended extrarenal pelvis, abrupt transition between renal pelvis and proximal ureter consistent with element of congenital UPJ without evidence of definitive ureteral stone
-Ceftriaxone>> transition to cefdinir 300 twice daily for another 3 days at [place] to complete 7 day course
-Urology consult appreciated; no need for inpatient intervention - to follow up with Dr. Rodas
#Renal calculi
# Nongap metabolic acidosis
-resolved post IVF
Hypomagnesemia
Hypocalcemia
-repleted and resolved
#History of left ureteral stricture prior left ureteral stent
#Chronic kidney disease
-Renal function at baseline
Essential hypertension
Hyperlipidemia
-Continue statin
History of lumbar compression fractures
Anxiety/depression
-Continue sertraline
Obesity
Neuropathy
-Continue gabapentin
Essential tremor
-Continue propranolol, primidone
-Physical therapy occupational therapy may need short-term rehab or higher level of care from her present independent living
-texting neurology for clinic appointment
Osteoporosis
Full code
DVT prophylaxis�heparin
Regular diet
Anticipated Discharge: Within 24 hours
Subjective/Interval History
-
Date of Service: September 29, 2023
no longer having dysuria or lower abdominal pain
complains of chronic tremor worse with right arm ; reports worsening post fall with rib fractures that occurred end of last year. she has chronic weakness from fracture years ago
Objective Data
-
Vital Signs:
Vital Signs
Temp Pulse Resp BP Pulse Ox
97.9 F 61 16 140/75 93
09/29/23 08:06 09/29/23 08:06 09/29/23 08:06 09/29/23 08:06 09/29/23 08:06
I&O
09/28/23 09/29/23 09/30/23
06:59 06:59 06:59
Intake Total 900 / 900 1500 / 1500
Balance 900 / 900 1500 / 1500
Review of Systems
-
History Source: Patient
Physical Exam
-
General: Well Developed and No Apparent Distress
HEENT: PERRLA
Respiratory: Clear to Auscultation; Negative Wheezes
Cardiac: Regular Rhythm and S1/S2
GI: Soft and Nontender
Musculoskeletal: No Edema
Skin: Warm and Dry; Negative Rash
Neuro: AO x 3 and Other (resting tremor right greater than left )
Psych: Calm
Data Reviewed
-
Diagnostic Radiology: Report Reviewed by me
Labs: Labs Reviewed by me
--- NOTE | 2023-09-29 10:13 | W.PN.URO.CBU ---
Today's Communication / Plan
-
per hospitalist no gu intervention
Assessment / Plan
-
change in mental staus woth electrolyte dosorders but no pointing focal gu etilolgioes for now pt is progreesing and not in need of perc tube or jj stent iterventions If stable woulf discharge on targetd po abs and have pt foow ith dr bianchi
for definitive tx of renal diseases
Diagnosis
-
Date of Service: September 29, 2023
-
Patient Diagnosis:
Post Op Day:
Patient Diagnosis:
Post Op Day:
Patient Diagnosis:
Post Op Day:
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
Post Op Day:
Subjective
-
no gu complaints
Objective
-
Vital Signs
Temp Pulse Resp BP Pulse Ox
97.9 F 61 16 140/75 93
09/29/23 08:06 09/29/23 08:06 09/29/23 08:06 09/29/23 08:06 09/29/23 08:06
Intake and Output
09/28/23 09/29/23 09/30/23
06:59 06:59 06:59
Intake Total 900 / 900 1500 / 1500
Balance 900 / 900 1500 / 1500
Intake:
Oral fluids 900 / 900 1500 / 1500
Other:
Number of approximated LARGE 3
amounts of urine
How many times incontinent 1
MODERATE amount urine
How many times incontinent 1
SATURATED amount urine
Laboratory Results
09/28/23 05:26
09/28/23 05:26
Review of Systems
-
: No Symptoms
Physical Exam
-
General - well developed, well nourished, no acute distress
Chest - clear bilaterally
Abdomen - soft, non-tender, positive bowel sounds, no CVAT, no incisional pain or distention
Genitalia - normal
Rectal - normal
Skin - warm & dry with no rash
Neuro - AOx3, no motor deficits
Extremities - no clubbing, no cyanosis, no edema
Incision - clean, dry
Dressing - clean, dry, intact
Care Review
Data Reviewed
Discussed with: Nursing
--- NOTE | 2023-09-29 12:40 | CM ---
Received notification from attending that patient is medically clear for discharge. Spoke with patient who stated that she wants to do skilled rehab however she mentioned that she believes she is out of skilled time under her Medicare.
Placed a call to Mckenzie in admissions at [facility] who stated that patient is out of Medicare days however she can still go to [facility], she would just get three days of therapy for an hour and a half as opposed to daily.
Placed a call to patient's daughter, Emilee, who confirmed that she would like for patient to go to [facility]. She stated that she can provide transportation later this afternoon.
Placed a call back to Mckenzie to confirm the plan. She confirmed bed availability and stated that # For report is [phone] and fax# [phone] ext [phone]
She requested that all clinical be faxed to her at, above number.
Plan: Case management will continue to follow and assist with discharge planning. Patient would like to go to [facility].
--- NOTE | 2023-09-29 14:17 | W.DCSUMMARY ---
Discharge Summary
Discharge Data
Date of Admission: 09/25/23
Date of Discharge: 09/29/23
-
Pending Results: No
Hospital Course
Discharging Physician : Dr. Lorena Middleton
Disposition : SNF
Primary care physician : Dr. Nubia Mix
Principal Discharge diagnosis : Complicated Urinary Tract Infection, Essential Tremors
Hospital Course :
Ms. Chanelle Mujica is a 83-year-old female with past medical history of kidney stones, left ureteral stricture with prior left ureteral stent, frequent UTIs, hypertension, hyperlipidemia, lumbar compression fractures, anxiety/depression, obesity,
neuropathy, osteoporosis, essential tremor, presenting with generalized weakness, difficulty ambulating, burning with urination increased urinary frequency since day prior. Triage vitals stable. Labs significant for RAMSES with creatinine 1.1.
Abdomen/Pelvis CT without definitive ureteral calculus; left chronic moderate hydro increased since prior.
Patient was admitted to medicine with Urology consulting. Symptoms improved on IV Ceftriaxone. Urine culture with mixed william, she was continued on Cefdinir and will complete a total of 7 days of antibiotics. No need for inpatient intervention per
Urology, she will follow up closely with Urology as outpatient.
HD 1 labs significant for hypokalemia, hypocalcemia, hypomagnesemia, hypoglycemia and non-gap metabolic acidosis - unclear if drawn from arm with IV running? Electrolytes repleted and normalized prior to admission.
Of note, patient with chronic hx essential tremors that have increased in severity. 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 She will follow up with Neurology as outpatient.
Patient is discharged to SNF.
Time spent on discharge was 35 minutes.
Important imaging findings :
Abdomen/Pelvis CT 09/25/23
IMPRESSION:
Stable prominent distention of the common hepatic duct, measuring 2 cm. The common bile duct is stable and within normal limits given patient age and prior cholecystectomy, 10 mm.
Bilateral renal calculi. Stable asymmetric left renal cortical atrophy. Stable appearing distention of the right intrarenal collecting system. Left chronic moderate hydronephrosis, having increased since prior examination. Findings suggest an
element of congenital ureteropelvic junction obstruction. There is mild distention of the ureters, bilaterally. However, no definite ureteral calculus is identified, bilaterally.
Mild colonic fecal burden.
Mild age indeterminate superior plate compression deformity of T10 has developed since prior examination.
Procedure findings :
Discharge Plan
-
Patient Disposition: [facility]/SNF
Discharge Diagnosis/Procedures: Toxic metabolic encephalopathy
Suspect complicated urinary tract infection on presentation/no growth on urine culture
Chronic left hydronephrosis with congenital UPJ obstruction and left staghorn calculi on right
Corrected metabolic acidosis, hypocalcemia, hypomagnesemia
Diet: As tolerated
Activity: As tolerated
Driving Restrictions: No driving
Other Services: PT and OT
Referrals:
Martha Guo CRNP [Specified Professional Personl] - in one to two weeks
Nubia Mix CRNP [Family Provider] -
Avila Muniz MD [Active] - (call [facility] [phone] AND SET UP APPT DR CHAPPELL FOR DISCUSION OF HOW TO GO FORWARD )
Additional Discharge Medication Instructions: We are increasing your Primidone from 50mg to 75mg to be taken in evenings.
complete 3 more days of Cefdinir
Prescriptions:
New
primidone 50 mg Tablet
75 mg PO HS Qty: 45 0RF
cefdinir 300 mg Capsule
300 mg PO Q12 Qty: 6 0RF
Continued
melatonin 10 MG tablet
10 mg PO HS
PreserVision AREDS 1 CAP capsule
1 cap PO BID
gabapentin 300 MG capsule
300 mg PO BID
atorvastatin [Lipitor] 10 mg Tablet
10 mg PO DAILY
propranolol 60 mg Capsule,Extended Release 24 Hr
60 mg PO DAILY
sertraline 100 mg Tablet
100 mg PO DAILY
therapeutic multivitamin Tablet
1 tab PO DAILY
calcium carbonate [Calcium 600] 600 mg calcium (1,500 mg) Tablet
600 mg PO DAILY
estradiol [Estrace] 0.01 % (0.1 mg/gram) Cream
1 appful VAGINAL Q48H
lutein 20 mg Capsule
20 mg PO DAILY
cholecalciferol (vitamin D3) [Vitamin D3] 25 mcg (1,000 unit) Tablet
25 mcg PO DAILY
Refresh Optive 0.5-0.9 % Drops
1 drp BOTH EYES QIDPRN PRN (Reason: dryness)
Discontinued
primidone 50 mg Tablet
50 mg PO DAILY
ciprofloxacin HCl [Cipro] 500 mg Tablet
500 mg PO BID
ibuprofen [Advil] 200 mg Tablet
200 mg PO Q8HPRN PRN (Reason: mild pain)
Discharge Orders:
Discharge Patient (As Directed); Ordered 09/29/23
Ordered By: Lorena Middleton
Discharge Date and Time
Print Language: BELARUSIAN
--- NOTE | 2023-09-29 14:28 | W.DS.TRANS ---
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
-
Discharge Instructions:
Discharge Diagnosis/Procedures Toxic metabolic encephalopathy
Suspect complicated urinary tract infection on
presentation/no growth on urine culture
Chronic left hydronephrosis with congenital UPJ
obstruction and left staghorn calculi on right
Corrected metabolic acidosis, hypocalcemia,
hypomagnesemia
Diet As tolerated
Activity As tolerated
Driving Restrictions No driving
Other Services OT,PT
Instructions:
Stand-Alone Forms:
Changes to Home Medications: Yes
Discharge Medications:
DC Medications w/original date entered in [employer]
melatonin 10 mg tablet 10 mg PO HS Sleep 10/11/19
vitamins A,C,D-dakc-xopvfv 4,296 mcg-226 mg-90 mg capsule (PreserVision AREDS) 1 cap PO BID Supplement 10/07/20
gabapentin 300 mg capsule 300 mg PO BID Neurological Condition 07/24/21
atorvastatin 10 mg tablet (Lipitor) 10 mg PO DAILY High Cholesterol 09/25/23
calcium carbonate (Calcium 600) 600 mg PO DAILY Supplement 09/25/23
carboxymethylcellulose 0.5 %-glycerin 0.9 % eye drops (Refresh Optive) 1 drp BOTH EYES QIDPRN PRN dryness 09/25/23
cholecalciferol (vitamin D3) 25 mcg (1,000 unit) tablet (Vitamin D3) 25 mcg PO DAILY Supplement 09/25/23
estradiol 0.01% (0.1 mg/gram) vaginal cream (Estrace) 1 appful vaginal Q48H Hormonal Agent 09/25/23
lutein 20 mg capsule 20 mg PO DAILY Supplement 09/25/23
propranolol 60 mg capsule,24 hr,extended release 60 mg PO DAILY tremor 09/25/23
sertraline 100 mg tablet 100 mg PO DAILY Depression 09/25/23
therapeutic multivitamin 1 tab PO DAILY Supplement 09/25/23
cefdinir 300 mg capsule 300 mg PO Q12 #6 caps 09/29/23
primidone 50 mg tablet 75 mg (1.5 x 50 mg) PO HS #45 tabs 09/29/23
Home Medication Changes
We are increasing your Primidone from 50mg to 75mg to be taken in evenings.
complete 3 more days of Cefdinir
Pending Results: No
[2023-09-29] MEDS: MYSOLINE 25 MG PO (15:18)
[2023-09-29 15:22] VITALS: BP 127/64
--- NOTE | 2023-09-29 20:27 | PTCARENOTE ---
Pt picked up via EMS @ 2019. D/C'd to [facility]. Report called by rohan FORBES. IV removed.
== END 2023-09-29 20:25 | DRG 689 ==
LOC: 3 WEST ACU 23:34
PROVIDERS: Internal Medicine; ADMITTING PHYSICIAN Hospitalist; ATTENDING PHYSICIAN Student in an Organized Health Care Education/Training Program; CONSULT PHYSICIAN Specialist; EMERGENCY PHYSICIAN Emergency Medicine; FAMILY PHYSICIAN Nurse Practitioner Adult Health
DX: N13.6 Pyonephrosis (principal); G92.8 Other toxic encephalopathy; E87.20 Acidosis, unspecified; M48.54XA Collapsed vertebra, not elsewhere classified, thoracic region, initial encounter for fracture; Q62.11 Congenital occlusion of ureteropelvic junction; E78.00 Pure hypercholesterolemia, unspecified; G25.0 Essential tremor; R26.2 Difficulty in walking, not elsewhere classified; F32.A Depression, unspecified; E66.9 Obesity, unspecified; G62.9 Polyneuropathy, unspecified; E83.51 Hypocalcemia; E83.42 Hypomagnesemia; M81.0 Age-related osteoporosis without current pathological fracture; N20.0 Calculus of kidney; Z68.35 Body mass index [BMI] 35.0-35.9, adult; Z87.440 Personal history of urinary (tract) infections; Z87.442 Personal history of urinary calculi; Z91.013 Allergy to seafood
CPT/HCPCS: 74176; 80048; 80053; 81003; 81015; 82330; 83735; 85025; 85027; 87086; 96374; 96375; 97162; 97166; 97535; 99285; J7030

== ENCOUNTER 2023-10-28 06:16 | Day surgery (SDC) | payer MEDICARE, OTHER, SELFPAY ==
[2023-10-28] VITALS (10 sets, daily range): BP systolic 105–145; BP diastolic 62–77; BMI 32.9
[2023-10-28] MEDS: NORMOSOL-R 1000 IV (07:21)
[2023-10-28] MEDS: Pyridium 200 MG PO (10:25)
[2023-10-31 10:40] LABS: Stone Analysis Mass 75 mg
== END 2023-10-28 13:00 ==
LOC: SDS 06:16
PROVIDERS: ATTENDING PHYSICIAN Urology
DX: N20.0 Calculus of kidney (principal); N13.5 Crossing vessel and stricture of ureter without hydronephrosis
CPT/HCPCS: 52356; 74420; 76000; 82365; A4300; C1758; C1769; C1894; C2617

== ENCOUNTER 2023-11-06 06:15 | Day surgery (SDC) | payer MEDICARE, OTHER, SELFPAY ==
[2023-11-06] VITALS (11 sets, daily range): BP systolic 90–145; BP diastolic 59–106; BMI 34.2
[2023-11-06] MEDS: NORMOSOL-R 1000 IV (11:07)
[2023-11-06] MEDS: Pyridium 200 MG PO (15:07)
== END 2023-11-06 16:25 | disposition home or self-care (01) ==
LOC: SDS 06:15
PROVIDERS: ATTENDING PHYSICIAN Urology
DX: N20.0 Calculus of kidney (principal)
CPT/HCPCS: 52356; 74018; 76000; C1769; C1894; C2617

== ENCOUNTER 2023-11-07 14:49 | Inpatient (IN) | payer MEDICARE, OTHER, SELFPAY ==
[2023-11-07 11:54] VITALS: BP 109/79
[2023-11-07 12:14] LABS: % Basophils 0.3 % (0-2); % Immature Granulocytes 0.7 % (0-0.5); % Lymphocytes 3.8 % (20.5-51.1); % Monocytes 5.6 % (1.7-9.3); % Neutrophils 89.6 % (42.2-75.2); Absolute Basophils 0.1 10^3/uL (0-0.2); Absolute Immature Granulocytes 0.2 10^3/uL (0-0.05); Absolute Lymphocytes 0.8 10^3/uL (1.2-3.4); Absolute Monocytes 1.2 10^3/uL (0.1-0.6); Absolute Neutrophils 19.7 10^3/uL (1.4-6.5); Hematocrit 36.6 % (37.0-47.0); Hemoglobin 11.9 g/dL (12.0-16.0); Mean Corp Hgb Conc. 32.5 g/dL (33.0-37.0); Mean Corpuscular Volume 89.1 fL (81.0-99.0); Mean Platelet Volume 8.4 fL (7.4-10.4); Nucleated Red Blood Cells % 0 %; Platelet Count 228 10^3/uL (130-400); Red Blood Cell Count 4.11 10^6/uL (4.20-5.40); Red Cell Dist. Width 14.2 % (11.5-14.5)
[2023-11-07 12:15] LABS: Urine Albumin 1+ (Neg - Trace); Urine Bilirubin 1+ (Negative); Urine Character Slightly Cloudy (Clear); Urine Color Yellow; Urine Glucose Negative (Negative); Urine Ketone Trace (Negative); Urine Leukocyte 2+ (Negative); Urine Nitrite Positive (Negative); Urine Occult Blood 4+ (Negative); Urine Urobilinogen Negative (Neg - 1+)
--- NOTE | 2023-11-07 12:26 | ED.GENMED ---
History of Present Illness
General
Chief Complaint: Fever
Source: records and family
Exam Limitations: clinical condition
Time Seen by Provider: 11/07/23 12:15
Travel History
Have you had any contact with someone who has COVID-19?: Unable to Answer
Do you have any symptoms of coronavirus? Fever > 100 degrees, chills, cough, shortness of breath, sore throat, loss of taste or smell, muscle aches, or headache?: Unable to Answer
History of Present Illness
History of Present Illness:
83-year-old female presents with high fever decreased mental status apparently started this morning. Patient had a laser surgery and ureteral stent changed yesterday. No other obvious infectious symptoms. Some minimal cough. Significant change
in mental status overnight.
Past History
Past History
ED Past Medical History: HTN, Hypercholesterolemia, Psychiatric, Other (lumbar compr fx) and Other (kidney stones)
ED Past Surgical History: Appendectomy, Orthopedic (Right wrist ORIF, vertebraplasty), Tonsilectomy, Urological and Other (Hernia repair, cataract surgery)
Social History
Tobacco: Non-smoker
Alcohol: Occasional
Drug: None
Personal: Single
Living: alone
Employment: Retired
Review of Systems
Review of Systems
Unable to obtain full review of systems at this time due to: due to acuity
All Other Systems: Not applicable
Phy Exam
Physical Exam
Physical Exam:
GENERAL: Lethargic. Will answer simple questions. Eyes closed. Will follow simple commands.
EYE: Orbits normal.
NECK: Supple, no significant adenopathy.
ENT: Pharynx without erythema
CARDIAC: Regular rate and rhythm without any obvious murmurs.
LUNGS: Clear breath sounds,normal
ABDOMEN: Soft, without focal tenderness or distention
NEUROLOGICAL: Lethargic. Grossly nonfocal
SKIN: Warm and dry, no rash or lesion, no discoloration, skin intact.
MUSCULOSKELETAL: No edema,no deformity.Good color
Course
Orders/Labs/Results
Orders:
Orders
11/07/23 Breakfast
Regular
11/07/23 11:57
Electrocardiogram (*1) Urgent
Reason for Study: Abnormal EKG
11/07/23 11:58
EKG- Treatment ONCE
11/07/23 11:59
Complete Blood Count/With Diff Urgent
Comprehensive Metabolic Panel Urgent
Lactic Acid Urgent
NT-proBNP Urgent
Comment: ADD ON
Urinalysis Reflex To Culture Urgent
Date Specimen was Collected: 11/07/23
Time Specimen was Collected: 11:57
Urine Microscopic Reflex Cult Urgent
Urine Culture Urgent
CARLIE Source: U
Specimen Description:
Date Specimen was Collected: 11/07/23
Time Specimen was Collected: 11:57
11/07/23 12:00
Blood Culture Q30M
CARLIE Source: Blood/Venous
Specimen Description:
11/07/23 12:09
Blood Culture Q30M
CARLIE Source: Blood/Venous
Specimen Description:
11/07/23 12:22
0.9% Sodium Chloride 1000 ml [Nss] 2,400 ml IV NOW STA
Acetaminophen 1000MG/100Ml [Ofirmev] 1,000 mg in 100 ml IV ONCE
Acetaminophen IV Indication:: ED Narcotic Naive Pt-ONCE
Cefepime HCl [Maxipime] 2,000 mg IV NOW STA
11/07/23 12:24
CXR Port [CR Chest Portable - 1 View] Urgent
Comment:
Reason For Exam: fever
Reason Study Needs to be Portable: Unable to Transport
11/07/23 12:36
COVID-19 Antigen Urgent
Source: Nasal Swab
Influenza A+B Rapid Molecular Urgent
CARLIE Source: Nasal Swab
Specimen Description:
11/07/23 13:01
CT Abd/pel Without Iv Or Oral Stat
Comment:
Reason For Exam: Urosepsis. Recent stent change. History of kidne
11/07/23 13:14
Admit/Transfer Patient As Directed
Co-Sign Provider:
Level of Care: Inpatient admission
Assign to:: Telemetry
Physician / Group: Ilana
Diagnosis: Severe Sepsis
Reason for Telemetry: Arrhythmia
Date to Stop Telemetry: 11/10/23
Time to Stop Telemetry: 11:00
Reason for Hospitalization: IVFs, IV abx
Expected length of stay greater than two midnights?: Yes
ELOS- Estimated Length of Stay in days: 3
I certify the patient meets the requirements for IP care: Yes
11/07/23 13:16
Code Status As Directed
Resuscitation Status: Full Code
11/07/23 14:21
Add On- LAB Urgent
Tests Added?: pro bnp
11/07/23 15:00
0.9% Sodium Chloride 1000 ml [Nss] 1,000 ml IV 50 mls/hr
Acetaminophen [Tylenol] 650 mg PO Q4HPRN PRN
Cefepime HCl [Maxipime] 2,000 mg IV Q12H
11/07/23 15:00
UROLOGY CONSULT Routine
Consulting Provider: Yogesh Alvarez
Was physician already notified: Yes
Activity As Directed
Activity Level: Out of Bed-Early Mobility
With Assistance
I&O [Intake/ Output] As Directed
Frequency: q12h
Vital Signs As Directed
Frequency: Per unit guidelines
Weight As Directed
Frequency: Daily
Oxygen Therapy [O2 Therapy] [RESP] Routine
Titrate/Wean O2 to maintain O2 sat greater than (%): 90
Rx Incentive Spirometry [RESP] Routine
Frequency: q1h while awake
Ot Eval And Treat Routine
Pt Eval And Treat Routine
Activity Level: Out of Bed-Early Mobility
DX Deep Vein Thrombosis Video Routine
11/07/23 16:00
Heparin 5,000 units SC Q8
11/07/23 20:00
Gabapentin [Neurontin] 300 mg PO BID
11/07/23 22:00
Atorvastatin [Lipitor] 10 mg PO HS
Primidone [Mysoline] 75 mg PO HS
11/08/23 06:00
Basic Metabolic Panel IN AM
Complete Blood Count/No Diff IN AM
Magnesium IN AM
11/08/23 08:00
Propranolol Extended Release [Inderal LA] 60 mg PO DAILY
Sertraline HCl [Zoloft] 100 mg PO DAILY
11/10/23 11:00
DC Protocol for Telemetry ONCE
Abnormal Lab Results
11/07/23
11:59
WBC 22.0 H 10^3/uL
(4.8-10.8)
RBC 4.11 L 10^6/uL
(4.20-5.40)
Hgb 11.9 L g/dL
(12.0-16.0)
Hct 36.6 L %
(37.0-47.0)
MCHC 32.5 L g/dL
(33.0-37.0)
Abs Immat Gran (auto) 0.2 H 10^3/uL
(0-0.05)
Absolute Neuts (auto) 19.7 H 10^3/uL
(1.4-6.5)
Absolute Lymphs (auto) 0.8 L 10^3/uL
(1.2-3.4)
Absolute Monos (auto) 1.2 H 10^3/uL
(0.1-0.6)
Immature Gran % 0.7 H %
(0-0.5)
Neutrophils % 89.6 H %
(42.2-75.2)
Lymphocytes % 3.8 L %
(20.5-51.1)
BUN 20 H mg/dl
(7-17)
Creatinine 1.5 H mg/dL
(0.6-1.0)
Glucose 137 H mg/dl
(70-99)
AST 42 H U/L
(14-36)
Urine Ketones Trace A
(Negative)
Ur Occult Blood Reflex 4+ A
(Negative)
Urine Nitrite (Reflex) Positive A
(Negative)
Urine Bilirubin 1+ A
(Negative)
Leukocyte Esterase Rfl 2+ A
(Negative)
Urine RBC >100 A /HPF
(0-2)
Urine WBC (Reflex) >100 A /HPF
(0-5)
Urine Bacteria (Reflex) Few A
(Negative)
Urine Albumin (Reflex) 1+ A
(Neg - Trace)
11/07/23 11:59
11/07/23 11:59
Vital Signs
Initial and Last Documented VS:
Initial Vital Signs
Temp Pulse Resp BP
103.5 F H 94 16 109/79
11/07/23 11:54 11/07/23 11:54 11/07/23 11:54 11/07/23 11:54
Last Documented Vital Signs
Temp Pulse Resp BP Pulse Ox
98.4 F 94 16 109/79 95
11/07/23 13:54 11/07/23 11:54 11/07/23 11:54 11/07/23 11:54 11/07/23 11:57
MDM/Problems Addressed
Differential Diagnosis Includes:
1225... Clinically this is likely urosepsis. Of fluids ordered. Cefepime ordered. Labs and CT blood cultures lactic acid. Previous records reviewed. I did contact urology to make them aware given that she had a procedure done yesterday.
Clearly warrants admission. Family updated. Will look for secondary causes of fever although unlikely. Check chest x-ray COVID flu.
*Radiology
Radiology exam reviewed: preliminary read by ED provider (Questionable cephalization on chest x-ray), radiology read reviewed (No acute findings on CT except for inflammation of the right kidney. Stent in place. No unusual hydronephrosis. Chronic
changes of the left kidney.) and other (Cephalization)
*Pulse Oximetry
Patient hypoxic: yes
*EKG
Interpreted by ED Provider?: Yes
Interpretation: abnormal
Comparison EKG: no changes
Heart Rate: 88
Rate: normal
Rhythm: sinus
[place]: normal axis
Interval: normal interval
QRS Pattern: normal QRS
Ischemia: no ischemia
*Critical Care Note
Total Time (30-74mins, 75-104mins- exclusive of procedures): 40
Data Reviewed
Review of Other/Old Records Reveals: Labs, Records, Radiology Studies, Operative Reports, Testing and Discharge Summary
Update Note
Update Note:
1415.... X-ray reported as mild cephalization. Clinically doubt heart failure. Blood pressure is 98. We are giving fluids not wide open. Will add proBNP. Urology was contacted previously with the CT report
ED Attending Note
-
Portions of this chart may have been created with voice recognition software.� Occasional wrong word or��sound alike� substitutions may have occurred due to the inherent limitations of voice recognition software.
Discharge Plan
Departure
Patient Disposition: Admit
Date of Disposition: 11/07/23
Time of Disposition: 12:42
Presentation/result/management discussed w/ accepting MD/DO: Urology
Discharge Problem:
Urosepsis, Urosepsis recent kidney stone/ureteral s, Possible CHF
Interventions
Interventions:
*Risk Screen - Suicide Last Done: 11/07/23 11:53
*General Assessment Last Done: 11/07/23 11:52
*Neglect/Abuse Screening Last Done: 11/07/23 11:53
ED- Fall Risk Assessment Last Done: 11/07/23 14:14
*ED COVID-19 Vaccine History Last Done: 11/07/23 11:51
*Nursing Disposition Last Done: 11/07/23 14:14
ED- Neurological Assessment Last Done: 11/07/23 11:54
ED-Skin Assessment Last Done: 11/07/23 11:54
Discharge Date and Time
Discharge Date/Time: 11/07/23 14:58
[2023-11-07 12:29] LABS: Lactic Acid 1.4 mmol/L (0.7-2.0)
[2023-11-07] MEDS: NSS 2400 ML IV (12:30)
[2023-11-07 12:31] LABS: ALT (SGPT) 30 U/L (0-35); AST (SGOT) 42 U/L (14-36); Albumin 4.2 g/dl (3.5-5.0); Alkaline Phosphatase 77 U/L (38-126); Blood Urea Nitrogen 20 mg/dl (7-17); Calcium 9.1 mg/dl (8.4-10.2); Carbon Dioxide 26 mmol/L (22-30); Chloride 105 mmol/L (98-107); Glucose 137 mg/dl (70-99); Potassium 4.3 mmol/L (3.5-5.1); Sodium 143 mmol/L (135-145); Total Bilirubin 0.5 mg/dl (0.2-1.3); Total Protein 7.5 g/dl (6.3-8.2); eGFR 34.79
[2023-11-07] MEDS: OFIRMEV 100 IV (12:31)
[2023-11-07] MEDS: MAXIPIME 2000 MG IV (12:31)
[2023-11-07 12:45] LABS: Urine Red Blood Cell >100 /HPF (0-2); Urine White Cell >100 /HPF (0-5)
[2023-11-07 12:46] LABS: Urine Bacteria Few (Negative)
--- NOTE | 2023-11-07 13:00 | HPS.HSE ---
Family Physician
-
Family Physician:
Chief Complaint
-
Fever
History of Present Illness
This is an 83 year old female with past medical history of hypertension, nephrolithiasis and left ureteral stricture who presents to the emergency department for altered mental status and hypoxia post nephrolithiasis removal and stent exchange
yesterday 11/06/23. Patient's son provided historical information due to patient's current mentation. The son states that after the patient's procedure yesterday he noticed the patient was confused. The son reports the patient was not responding to
conversation and had difficulty ambulating. Patient's son reports when they returned to the [facility] facility, the patient was confused and had rigors. Nursing staff put the patient on oxygen after noticing her oxygen level was in the low
90s, resulting in improvement of the patient's mentation. This morning, nursing staff tried to take the patient off oxygen but patient's oxygen level returned to low 90s, prompting them to send the patient to the emergency department. Upon arrival
to the emergency department patient was found to be febrile with temp 103.5F. Patient denies cough, nausea, vomiting, diarrhea, dyuria or flank pain.
Medical History
Past Medical History
Past Medical History: Reports Other
Additional Past Medical History:
Nephrolithiasis
Left Ureteral Stricture
Essential Hypertension
Hyperlipidemia
Anxiety/Depression
Peripheral Neuropathy
Essential Tremor
Osteoporosis
Lumbar Compressor Fracture
Obesity
Past Surgical History: Reports Other
Additional Past Surgical History:
Ureteral Stent
Right Wrist ORIF
Vertebroplasty
Tonsillectomy
Appendectomy
Hernia Repair
Cataract Surgery
Social History
Tobacco: Non-smoker
Alcohol: Occasional
Drug: None
Family History
Family History: Not pertinent
Allergies / Home Medications
Allergies reflects when Allergies were last updated in [employer].
Home Medications with original date entered in [employer]
Allergy/Medication List:
Allergies
Allergy/AdvReac Type Severity Reaction Status Date / Time
crab Allergy SOFT Verified 11/06/23 10:42
SHELL-HIVES
No Known Drug Allergies Allergy NA Verified 11/06/23 10:42
shellfish derived Allergy Hives Verified 11/06/23 10:42
shrimp Allergy ABDOMINAL Verified 11/06/23 10:42
PAIN/FLUSHING
Home Medications
melatonin 10 mg tablet 10 mg PO HS INSOMNIA 10/11/19
vitamins A,C,J-gfya-yklayh 4,296 mcg-226 mg-90 mg capsule (PreserVision AREDS) 1 cap PO BID Supplement 10/07/20
gabapentin 300 mg capsule 300 mg PO BID POLYMYALGIA RHEUMATICA 07/24/21
atorvastatin 10 mg tablet (Lipitor) 10 mg PO HS High Cholesterol 09/25/23
calcium carbonate (Calcium 600) 600 mg PO DAILY Supplement 09/25/23
carboxymethylcellulose 0.5 %-glycerin 0.9 % eye drops (Refresh Optive) 1 drp BOTH EYES QIDPRN PRN DRY EYES 09/25/23
estradiol 0.01% (0.1 mg/gram) vaginal cream (Estrace) 1 appful vaginal Q48H@2000 Frequent UTI 09/25/23
lutein 20 mg capsule 20 mg PO DAILY Supplement 09/25/23
propranolol 60 mg capsule,24 hr,extended release 60 mg PO DAILY tremors/HTN 09/25/23
sertraline 100 mg tablet 100 mg PO DAILY Depression 09/25/23
acetaminophen 325 mg tablet 650 mg PO Q4HPRN PRN temp>100.5/pain 10/23/23
nitrofurantoin macrocrystal 100 mg capsule 100 mg PO HS prophylactic for UTI 10/23/23
primidone 50 mg tablet 75 mg PO HS tremors 10/23/23
sorbitol 70 % solution 30 ml PO [id number] PRN constipation 10/23/23
polyethylene glycol 3350 17 gram oral powder packet (Miralax) 17 g PO DAILYPRN PRN Constipation 11/03/23
phenazopyridine 200 mg tablet (Pyridium) 200 mg PO TIDPRN PRN dysuria 11/07/23
therapeutic multivitamin 1 tab PO QPM 11/07/23
Review of Systems
-
A 12 point ROS was completed and negative except as noted: Yes
Constitutional: Reports Fever
Respiratory: Denies Cough or Trouble Breathing
Cardiac: Denies Chest Pain or Palpitations
: Reports See HPI
Physical Exam
Vital Signs
Vital Signs
Temp Pulse Resp BP Pulse Ox
103.5 F H 94 16 109/79 95
11/07/23 11:54 11/07/23 11:54 11/07/23 11:54 11/07/23 11:54 11/07/23 11:57
Physical Exam
General: Well Developed, Well Nourished, Comfortable and Conversant
HEENT: Anicteric, Moist mucous membranes and Oxygen (Nasal Cannula)
Respiratory: Non Labored Respirations and Decreased Breath Sounds (Poor inspiratory effort)
Cardiac: S1/S2 and Regular Rhythm
GI: Soft and Non Tender
Rectal: Deferred by Provider
Musculoskeletal: No Clubbing, No Cyanosis and No Edema
Skin: Warm and Dry
Neuro: Awake, Alert and Nonfocal/grossly intact
Psych: Calm
Laboratory Results
-
11/07/23 11:59
11/07/23 11:59
Laboratory Results
Lactic Acid 1.4 mmol/L (0.7-2.0) 11/07/23 11:59
Total Bilirubin 0.5 mg/dl (0.2-1.3) 11/07/23 11:59
AST 42 U/L (14-36) H 11/07/23 11:59
ALT 30 U/L (0-35) 11/07/23 11:59
Alkaline Phosphatase 77 U/L (38-126) 11/07/23 11:59
Data Reviewed
-
Lab Data: Labs Reviewed by me
Impression/Plan
-
Severe Sepsis secondary to Urinary Tract Infection following recent Right Ureteral Stent Exchange
-Consult Urology
-Continue Cefepime
-Await urine and blood culture
-Await CT scan result
-Await Chest X-Ray result
Acute Kidney Injury
-Continue IVFs
-Await CT scan result
-Recheck labs in AM
Essential Hyperlipemia
-Continue propranolol with hold parameters
Hyperlipidemia
-Continue Lipitor
Peripheral Neuropathy
-Continue gabapentin
Essential Tremor
-Continue Primidone and Propranolol
Anxiety/Depression
-Continue Sertraline
DVT proph: SC Heparin
Code Status: Full Code
[2023-11-07 13:11] LABS: COVID-19 Antigen Negative (Negative)
--- NOTE | 2023-11-07 14:02 | W.PN.UPDATE ---
Update Note
Progress Note Update
HPI: 83 year old female with past medical history of hypertension, nephrolithiasis and left ureteral stricture who presented to the emergency department for altered mental status and hypoxia post nephrolithiasis removal and stent exchange the day
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
Patient's son provided history due to patient's current mentation. The son stated that after the patient's procedure the day prior, he noticed the patient was confused. The son reports the patient was not responding to conversation and had
difficulty ambulating. Patient's son reported when they returned to the long term facility, the patient was confused and had rigors. Nursing staff put the patient on oxygen after noticing her oxygen level was in the low 90s, this improved the
patient's mentation.
In the morning, nursing staff tried to take the patient off oxygen but patient's oxygen level returned to low 90s, prompting them to send the patient to the emergency department.
Upon arrival to the emergency department, patient was found to be febrile with temp 103.5F.
Patient denies cough, nausea, vomiting, diarrhea, dyuria or flank pain.
A/P:
# Severe Sepsis POA secondary to Urinary Tract Infection following recent Right Ureteral Stent Exchange
# Acute metabolic encephalopathy likely due to sepsis
Consult Urology
Continue Cefepime
Follow urine and blood culture
Follow CT scan result
# Acute hypoxic respiratory insufficiency, suspect related to severe sepsis on admission
Follow Chest X-Ray report
# Acute Kidney Injury
Continue IVFs
Await CT scan result
Recheck labs in AM
# Essential Hyperlipemia
Continue propranolol with hold parameters
# Hyperlipidemia
Continue Lipitor
# Peripheral Neuropathy
Continue gabapentin
# Essential Tremor
Continue Primidone and Propranolol
# Anxiety/Depression
Continue Sertraline
DVT proph: SC Heparin
Code Status: Full Code
[2023-11-07 14:58] LABS: NT-proBNP 4400 pg/ml
[2023-11-07 15:15] VITALS: BP 116/60
--- NOTE | 2023-11-07 16:03 | PTCARENOTE ---
Received pt from ER via stretcher,accompanied by ER staff. Pt AAO, oriented to self/place; confused at times. YANG slowly/stiffly; has (+) tremors of lower face/arms; unable to assist with positioning. Pt transferred to bed with assist x4. VSS.
Telemetry:NSR. n nc 3 lpm- pulse ox 98%, pt denies SOB. Abd obese, soft, no c/o discomfort; to start regular diet. Pt DTV; Attends in place. IV NSS @ 50 ml/hr infusing via Rt AC site without sx of infiltration. Oriented to 4East, currently
resting quietly; son at bedside. Will continue to monitor.
[2023-11-07 16:56] VITALS: BMI 34.0
[2023-11-07] MEDS: HEPARIN 5000 UNITS SC ×2 (17:11→23:24)
[2023-11-07] MEDS: NSS 1000 IV ×2 (17:12→22:05)
[2023-11-07] MEDS: TYLENOL 650 MG PO ×2 (18:14→22:23)
[2023-11-07 19:42] VITALS: BP 98/55
[2023-11-07] MEDS: NEURONTIN 300 MG PO (20:49)
[2023-11-07] MEDS: LIPITOR 10 MG PO (22:04)
[2023-11-07] MEDS: MYSOLINE 75 MG PO (22:05)
[2023-11-07 23:35] VITALS: BP 90/50
[2023-11-08] VITALS (9 sets, daily range): BP systolic 93–128; BP diastolic 47–96; PULSE 73; O2SAT 94; BMI 33.8
[2023-11-08] MEDS: TYLENOL 650 MG PO ×4 (05:52→23:10)
[2023-11-08 06:17] LABS: Hematocrit 29.8 % (37.0-47.0); Hemoglobin 9.8 g/dL (12.0-16.0); Mean Corp Hgb Conc. 32.9 g/dL (33.0-37.0); Mean Corpuscular Hgb 29.1 pg (27.0-31.0); Mean Corpuscular Volume 88.4 fL (81.0-99.0); Mean Platelet Volume 8.7 fL (7.4-10.4); Platelet Count 172 10^3/uL (130-400); Red Blood Cell Count 3.37 10^6/uL (4.20-5.40); Red Cell Dist. Width 14.5 % (11.5-14.5); White Blood Cell Count 18.6 10^3/uL (4.8-10.8)
[2023-11-08 06:48] LABS: Blood Urea Nitrogen 27 mg/dl (7-17); Calcium 8.3 mg/dl (8.4-10.2); Carbon Dioxide 20 mmol/L (22-30); Chloride 111 mmol/L (98-107); Estimated Creatinine Clearance 27 ml/min; Glucose 118 mg/dl (70-99); Magnesium 1.9 mg/dl (1.6-2.3); Potassium 3.8 mmol/L (3.5-5.1); Sodium 140 mmol/L (135-145); eGFR 34.79
[2023-11-08] MEDS: INDERAL LA PO (08:12)
[2023-11-08] MEDS: HEPARIN 5000 UNITS SC ×3 (08:13→23:06)
[2023-11-08] MEDS: ZOLOFT 100 MG PO (08:13)
[2023-11-08] MEDS: NEURONTIN 300 MG PO ×2 (08:13→19:29)
--- NOTE | 2023-11-08 09:01 | W.PN.HOSP.TC ---
Today's Communication/Plan
-
see A/P
Assessment / Plan
Assessment / Plan
HPI: 83 year old female with past medical history of hypertension, nephrolithiasis and left ureteral stricture who presented to the emergency department for altered mental status and hypoxia post nephrolithiasis removal and stent exchange the day
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
Patient's son provided history due to patient's current mentation. The son stated that after the patient's procedure the day prior, he noticed the patient was confused. The son reports the patient was not responding to conversation and had
difficulty ambulating. Patient's son reported when they returned to the alf facility, the patient was confused and had rigors. Nursing staff put the patient on oxygen after noticing her oxygen level was in the low 90s, this improved the
patient's mentation.
In the morning, nursing staff tried to take the patient off oxygen but patient's oxygen level returned to low 90s, prompting them to send the patient to the emergency department.
Upon arrival to the emergency department, patient was found to be febrile with temp 103.5F.
Patient denies cough, nausea, vomiting, diarrhea, dyuria or flank pain.
CT AP:
There is perinephric inflammation surrounding the right kidney, not seen previously. This may be related to recent procedure. There is a stent with one tip coiled in the kidney, and the other coiled in the bladder.
There is moderate hydronephrosis on the left, which appears chronic and related to chronic UPJ obstruction
There is dependent atelectasis in both lower lobes, similar to prior study
Common bile duct remains dilated, unchanged from prior study
A/P:
# Severe Sepsis POA secondary to Urinary Tract Infection following recent Right Ureteral Stent Exchange
# Acute metabolic encephalopathy likely due to sepsis, resolved
Pt is awake, conversant, appears AOX3
Continue Cefepime
Follow urine and blood culture
CT AP report as above
BP improved, stop further gentle IVF
Consult Urology
# Acute hypoxic respiratory insufficiency, suspect related to severe sepsis on admission
Placed on 3L NC, wean as tolerated
Chest X-Ray noted mild increase in pulmonary vasculature which suggests congestive heart failure or interstitial edema.
Monitor daily weight
Consider IV Diuretic
# Acute Kidney Injury
SCr 1.5 from baseline 1.0
Stop further gentle IVF with improved BP
# Essential Hyperlipemia
Continue propranolol with hold parameters
# Hyperlipidemia
Continue Lipitor
# Peripheral Neuropathy
Continue gabapentin
# Essential Tremor
Continue Primidone and Propranolol
# Anxiety/Depression
Continue Sertraline
DVT proph: SC Heparin
Code Status: Full Code
DW RN
Anticipated Discharge: > 48 hours
Subjective/Interval History
-
Date of Service: November 08, 2023
Objective Data
-
Labs:
Laboratory Results
11/08/23
05:55
WBC 18.6 H
Hgb 9.8 L
Hct 29.8 L
Plt Count 172 D
Sodium 140
Potassium 3.8
Chloride 111 H
Carbon Dioxide 20 L
BUN 27 H
Creatinine 1.5 H
Glucose 118 H
Calcium 8.3 L
Vital Signs:
Vital Signs
Temp Pulse Resp BP Pulse Ox
37.1 C 82 22 110/61 94
11/08/23 07:55 11/08/23 08:12 11/08/23 07:55 11/08/23 08:12 11/08/23 07:55
I&O
11/07/23 11/08/23 11/09/23
06:59 06:59 06:59
Intake Total 900 / 900
Output Total 0 / 0
Balance 900 / 900
Review of Systems
-
All other systems: Reviewed and negative
Physical Exam
-
General: Well Developed, Well Nourished, Comfortable and Obese
HEENT: Oxygen (3L NC)
Respiratory: Clear to Auscultation and Non Labored Respirations; Negative Wheezes or Accessory Resp Muscle Use
Cardiac: Regular Rhythm and S1/S2
GI: Soft and Nontender
Skin: Warm and Dry; Negative Rash
Neuro: Awake
Psych: Calm and Intact Judgement/Insight (somewhat )
Data Reviewed
-
CT Scan: Report Reviewed by me
Labs: Labs Reviewed by me
--- NOTE | 2023-11-08 10:25 | W.PN.URO.CBU ---
Today's Communication / Plan
-
No indication for urologic intervention - right ureteral stent in good position on CT
Continue IV antibiotics pending Cx S/S
Plan for outpatient cysto + right stent removal after discharge
Trend Cr - if clinical deterioration noted, will need IR consult for left PCN placement
Urology following - please call with questions
Assessment / Plan
-
Urosepsis secondary to cUTI
Chronic left UPJ obstruction w/ stricture
Post Op Day:
10/27: s/p right URS/LL/stone extraction/stent placement + left RGP
CTAP w/o IV contrast:
Perinephric inflammation surrounding the right kidney, not seen previously. This may be related to recent procedure. There is a stent with one tip coiled in the kidney, and the other coiled in the bladder.
Moderate hydronephrosis on the left, which appears chronic and related to chronic UPJ obstruction.
Of note - evidence of ascending left urinary tract infection vs. left pyelonephritis based on CT results.
WBC 18.6 (from )
Cr 1.5, stable (previously baseline 1.0 in early 2023)
Diagnosis
-
Date of Service: November 08, 2023
-
Patient Diagnosis:
Urosepsis secondary to cUTI
Chronic left UPJ obstruction w/ stricture
Post Op Day:
10/27: s/p right URS/LL/stone extraction/stent placement + left RGP
Objective
-
Vital Signs
Temp Pulse Resp BP Pulse Ox
98.7 F 82 22 110/61 94
11/08/23 07:55 11/08/23 08:12 11/08/23 07:55 11/08/23 08:12 11/08/23 07:55
Intake and Output
11/07/23 11/08/23 11/09/23
06:59 06:59 06:59
Intake Total 900 / 900
Output Total 0 / 0
Balance 900 / 900
Intake:
Oral fluids 150 / 150
IV fluids (Total) 750 / 750
Output:
Urine, Voided 0 / 0
Other:
How many times incontinent 2
SATURATED amount urine
Laboratory Results
11/08/23 05:55
11/08/23 05:55
Physical Exam
-
General - no acute distress
Pulmonary - on 3L NC
Abdomen - soft, non-tender, no CVAT
Genitalia - normal
Skin - warm & dry with no rash
Neuro - AOx3, no motor deficits
Extremities - no clubbing, no cyanosis, no edema
Care Review
Data Reviewed
Discussed with: Hospitalist
CT Scan: Report Pers Reviewed and Image Pers Reviewed
[2023-11-08] MEDS: MAXIPIME 1000 MG IV (12:18)
[2023-11-08] MEDS: STERILE WATER FOR INJECTION 10 ML IV (12:19)
--- NOTE | 2023-11-08 15:26 | CM ---
CM met with pt bedside
Pt typically resides at [facility] alone
She has a private caregiver 7 days weekly and needs assistance with her ADLs and personal care
Pt utilizes a rollator for short distances and a scooter for longer distances
She was admitted to from the SNF at [facility]
She is out of Medicare days
Call with nursing sup at SNF [phone] ext. [phone]
She can return back if cleared this weekend
Coordination to be done through nursing sup
Coordination for SNF to be done through SNF SW come Friday
Pt is aware SNF recommended by therapy
Discharge Disposition- return [facility]
[2023-11-08] MEDS: MYSOLINE 75 MG PO (19:29)
[2023-11-08] MEDS: LIPITOR 10 MG PO (19:29)
[2023-11-09 03:17] VITALS: BP 132/67
[2023-11-09 04:33] VITALS: BMI 33.9
[2023-11-09 06:05] LABS: % Basophils 0.5 % (0-2); % Eosinophils 2.7 % (0-6); % Immature Granulocytes 0.6 % (0-0.5); % Lymphocytes 10.2 % (20.5-51.1); % Monocytes 7.8 % (1.7-9.3); % Neutrophils 78.2 % (42.2-75.2); Absolute Basophils 0.1 10^3/uL (0-0.2); Absolute Eosinophils 0.4 10^3/uL (0-0.7); Absolute Immature Granulocytes 0.1 10^3/uL (0-0.05); Absolute Lymphocytes 1.4 10^3/uL (1.2-3.4); Absolute Monocytes 1.1 10^3/uL (0.1-0.6); Absolute Neutrophils 10.9 10^3/uL (1.4-6.5); Hematocrit 26.7 % (37.0-47.0); Hemoglobin 8.8 g/dL (12.0-16.0); Mean Corpuscular Hgb 28.8 pg (27.0-31.0); Mean Corpuscular Volume 87.3 fL (81.0-99.0); Mean Platelet Volume 9.2 fL (7.4-10.4); Nucleated Red Blood Cells % 0 %; Platelet Count 166 10^3/uL (130-400); Red Blood Cell Count 3.06 10^6/uL (4.20-5.40); Red Cell Dist. Width 14.6 % (11.5-14.5); White Blood Cell Count 13.9 10^3/uL (4.8-10.8)
[2023-11-09 06:53] LABS: ALT (SGPT) 20 U/L (0-35); AST (SGOT) 31 U/L (14-36); Alkaline Phosphatase 70 U/L (38-126); Blood Urea Nitrogen 28 mg/dl (7-17); Calcium 8.6 mg/dl (8.4-10.2); Carbon Dioxide 21 mmol/L (22-30); Chloride 107 mmol/L (98-107); Direct Bilirubin 0.4 mg/dl (0.0-0.4); Estimated Creatinine Clearance 29 ml/min; Glucose 82 mg/dl (70-99); Potassium 3.9 mmol/L (3.5-5.1); Sodium 136 mmol/L (135-145); Total Bilirubin 0.4 mg/dl (0.2-1.3); Total Protein 5.9 g/dl (6.3-8.2)
[2023-11-09 07:55] VITALS: BP 155/84
--- NOTE | 2023-11-09 08:10 | W.PN.URO.CBU ---
Today's Communication / Plan
-
Continue IV antibiotics pending Cx S/S
Trend WBC/Cr (improving)
No indication for surgical intervention at this time
F/U as scheduled 11/16 w/ Dr. Rodas (preop visit for robotic left nephrectomy)
Assessment / Plan
-
Urosepsis secondary to cUTI
Right pyelonephritis s/p ureteroscopic stone manipulation
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
Post Op Day:
10/27: s/p right URS/LL/stone extraction/stent placement + left RGP
11/05: s/p right URS/LL/stone extraction/stent exchange.
CTAP w/o IV contrast:
Perinephric inflammation surrounding the right kidney, not seen previously. This may be related to recent procedure. There is a stent with one tip coiled in the kidney, and the other coiled in the bladder.
Moderate hydronephrosis on the left, which appears chronic and related to chronic UPJ obstruction.
Of note - evidence of ascending left urinary tract infection vs. left pyelonephritis based on CT results.
WBC downtrending (18.6 <= 22)
Cr 1.4 (from 1.5, stable, previous baseline 1.0 in early 2023)
Diagnosis
-
Date of Service: November 09, 2023
-
Patient Diagnosis:
Urosepsis secondary to cUTI
Right pyelonephritis s/p ureteroscopic stone manipulation
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
Post Op Day:
10/27: s/p right URS/LL/stone extraction/stent placement + left RGP
11/05: s/p right URS/LL/stone extraction/stent exchange.
Subjective
-
Afebrile.
Feeling better.
Tolerating diet.
Objective
-
Vital Signs
Temp Pulse Resp BP Pulse Ox
99.2 F 73 20 155/84 92
11/09/23 07:55 11/09/23 07:55 11/09/23 07:55 11/09/23 07:55 11/09/23 07:55
Intake and Output
11/08/23 11/09/23 11/10/23
06:59 06:59 06:59
Intake Total 900 / 900 1070 / 1070
Output Total 0 / 0
Balance 900 / 900 1070 / 1070
Intake:
Oral fluids 150 / 150 770 / 770
IV fluids (Total) 750 / 750 300 / 300
Output:
Urine, Voided 0 / 0
Other:
How many times incontinent 2 3
SATURATED amount urine
Laboratory Results
11/09/23 05:34
11/09/23 05:34
Physical Exam
-
General - well developed, well nourished, no acute distress
Abdomen - soft, non-tender, non-distended
Skin - warm & dry with no rash
Neuro - AOx3, no motor deficits
Extremities - no clubbing, no cyanosis, no edema
Counseling
-
Discussed urologic plan of care extensively w/ son (José Miguel).
Care Review
Data Reviewed
Discussed with: Hospitalist and Family
CT Scan: Report Pers Reviewed and Image Pers Reviewed
Total Time Spent with Patient (in minutes): 75
--- NOTE | 2023-11-09 08:54 | W.PN.HOSP.TC ---
Today's Communication/Plan
-
see A/P
Assessment / Plan
Assessment / Plan
HPI: 83 year old female with past medical history of hypertension, nephrolithiasis and left ureteral stricture who presented to the emergency department for altered mental status and hypoxia post nephrolithiasis removal and stent exchange the day
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
Patient's son provided history due to patient's current mentation. The son stated that after the patient's procedure the day prior, he noticed the patient was confused. The son reports the patient was not responding to conversation and had
difficulty ambulating. Patient's son reported when they returned to the alf facility, the patient was confused and had rigors. Nursing staff put the patient on oxygen after noticing her oxygen level was in the low 90s, this improved the
patient's mentation.
In the morning, nursing staff tried to take the patient off oxygen but patient's oxygen level returned to low 90s, prompting them to send the patient to the emergency department.
Upon arrival to the emergency department, patient was found to be febrile with temp 103.5F.
Patient denies cough, nausea, vomiting, diarrhea, dyuria or flank pain.
CT AP:
There is perinephric inflammation surrounding the right kidney, not seen previously. This may be related to recent procedure. There is a stent with one tip coiled in the kidney, and the other coiled in the bladder.
There is moderate hydronephrosis on the left, which appears chronic and related to chronic UPJ obstruction
There is dependent atelectasis in both lower lobes, similar to prior study
Common bile duct remains dilated, unchanged from prior study
A/P:
# Severe Sepsis POA secondary to Complicated Urinary Tract Infection/ RIGHT pyelonephritis, following recent Right Ureteral Stent Exchange
# Acute metabolic encephalopathy likely due to sepsis, resolved
Pt is awake, conversant, appears AOX3
Urine culture no growth, blood culture negative- likely due to receiving antibiotic prior to culture collection
Continue Cefepime (with plan to change to PO Abx upon discharge) and treat for complicated UTI.
CT AP report as above
BP improved, stop further gentle IVF
Urology on board: No indication for urologic intervention, right ureteral stent in good position on CT. Plan for outpatient cysto + right stent removal after discharge. Eventual left nephrectomy due to h/o chronic obstructed L kidney
# History of left ureteral stricture prior left ureteral stent
# Acute hypoxic respiratory insufficiency, suspect related to severe sepsis on admission, resolved
Weaned off 3L NC back to RA
Chest X-Ray noted mild increase in pulmonary vasculature which suggests congestive heart failure or interstitial edema.
Monitor daily weight
given pt without weight gain, no crackle on exam, no pedal edema, has been weaned to RA, and no other sign of acute CHF, would hold off on diuretic at this point.
# Acute Kidney Injury
SCr 1.5 from baseline 1.0
Cont to monitor
# Essential Hyperlipemia
Continue propranolol with hold parameters
# Hyperlipidemia
Continue Lipitor
# Peripheral Neuropathy
Continue gabapentin
# Essential Tremor
Continue Primidone and Propranolol
# Anxiety/Depression
Continue Sertraline
DVT proph: SC Heparin
Code Status: Full Code
DW Uro
DW RN
Anticipated Discharge: 24 - 48 hours
Subjective/Interval History
-
Date of Service: November 09, 2023
Objective Data
-
Labs:
Laboratory Results
11/09/23
05:34
WBC 13.9 H
Hgb 8.8 L
Hct 26.7 L
Plt Count 166
Sodium 136
Potassium 3.9
Chloride 107
Carbon Dioxide 21 L
BUN 28 H
Creatinine 1.4 H
Glucose 82
Calcium 8.6
Total Bilirubin 0.4
AST 31
ALT 20
Alkaline Phosphatase 70
Vital Signs:
Vital Signs
Temp Pulse Resp BP Pulse Ox
37.3 C 73 20 155/84 92
11/09/23 07:55 11/09/23 07:55 11/09/23 07:55 11/09/23 07:55 11/09/23 07:55
I&O
11/08/23 11/09/23 11/10/23
06:59 06:59 06:59
Intake Total 900 / 900 1070 / 1070
Output Total 0 / 0
Balance 900 / 900 1070 / 1070
Review of Systems
-
All other systems: Reviewed and negative
Physical Exam
-
General: Well Developed, Well Nourished, Comfortable, Conversant, Appears Chronically Ill and Obese
Respiratory: Clear to Auscultation and Non Labored Respirations; Negative Wheezes, Crackles or Accessory Resp Muscle Use
Cardiac: Regular Rhythm and S1/S2
GI: Soft and Nontender
Skin: Warm and Dry; Negative Rash
Neuro: Awake and Tremors (chronic )
Psych: Calm and Intact Judgement/Insight (somewhat )
Data Reviewed
-
CT Scan: Report Reviewed by me
Labs: Labs Reviewed by me
[2023-11-09] MEDS: HEPARIN 5000 UNITS SC ×3 (09:21→23:50)
[2023-11-09] MEDS: ZOLOFT 100 MG PO (09:21)
[2023-11-09] MEDS: NEURONTIN 300 MG PO ×2 (09:21→20:09)
[2023-11-09] MEDS: INDERAL LA 60 MG PO (09:21)
[2023-11-09 11:43] VITALS: BP 144/83
[2023-11-09] MEDS: STERILE WATER FOR INJECTION 10 ML IV (12:24)
[2023-11-09] MEDS: MAXIPIME 1000 MG IV (12:25)
[2023-11-09] MEDS: ZOFRAN 4 MG IV (12:52)
[2023-11-09] MEDS: TYLENOL 650 MG PO (15:26)
[2023-11-09 15:55] VITALS: BP 144/83
[2023-11-09 19:26] VITALS: BP 130/70
[2023-11-09] MEDS: LIPITOR 10 MG PO (21:29)
[2023-11-09] MEDS: MYSOLINE 75 MG PO (21:30)
[2023-11-09 23:22] VITALS: BP 135/70
[2023-11-10] VITALS (8 sets, daily range): BP systolic 111–156; BP diastolic 63–77; PULSE 62; O2SAT 92; BMI 33.6
[2023-11-10] MEDS: TYLENOL 650 MG PO (04:03)
[2023-11-10 06:56] LABS: % Basophils 0.7 % (0-2); % Eosinophils 3.9 % (0-6); % Immature Granulocytes 0.5 % (0-0.5); % Lymphocytes 17.1 % (20.5-51.1); % Monocytes 9.4 % (1.7-9.3); % Neutrophils 68.4 % (42.2-75.2); Absolute Basophils 0.1 10^3/uL (0-0.2); Absolute Eosinophils 0.3 10^3/uL (0-0.7); Absolute Lymphocytes 1.3 10^3/uL (1.2-3.4); Absolute Monocytes 0.7 10^3/uL (0.1-0.6); Absolute Neutrophils 5.1 10^3/uL (1.4-6.5); Hematocrit 27.1 % (37.0-47.0); Hemoglobin 8.8 g/dL (12.0-16.0); Mean Corp Hgb Conc. 32.5 g/dL (33.0-37.0); Mean Corpuscular Hgb 28.2 pg (27.0-31.0); Mean Corpuscular Volume 86.9 fL (81.0-99.0); Mean Platelet Volume 9.3 fL (7.4-10.4); Nucleated Red Blood Cells % 0 %; Platelet Count 195 10^3/uL (130-400); Red Blood Cell Count 3.12 10^6/uL (4.20-5.40); Red Cell Dist. Width 14.3 % (11.5-14.5); White Blood Cell Count 7.4 10^3/uL (4.8-10.8)
[2023-11-10 07:49] LABS: Blood Urea Nitrogen 26 mg/dl (7-17); Calcium 8.7 mg/dl (8.4-10.2); Carbon Dioxide 20 mmol/L (22-30); Chloride 107 mmol/L (98-107); Estimated Creatinine Clearance 31 ml/min; Glucose 90 mg/dl (70-99); Potassium 4.3 mmol/L (3.5-5.1); Sodium 135 mmol/L (135-145); eGFR 41.31
[2023-11-10] MEDS: HEPARIN 5000 UNITS SC ×3 (09:00→23:53)
[2023-11-10] MEDS: NEURONTIN 300 MG PO ×2 (09:00→20:41)
[2023-11-10] MEDS: ZOLOFT 100 MG PO (09:00)
[2023-11-10] MEDS: INDERAL LA 60 MG PO (09:01)
--- NOTE | 2023-11-10 09:19 | W.PN.HOSP.TC ---
Today's Communication/Plan
-
Bowel regimen for constipation
Continue antibiotics
Assessment / Plan
Assessment / Plan
Physical Exam
General: Not in acute distress
Respiratory: Clear to Auscultation Bilaterally
Cardiac: Regular Rhythm and S1/S2
GI: Soft and Nontender. Positive Bowel Sounds.
Skin: Warm and Dry
Neuro: Awake and Tremors (chronic )
Psych: Calm and Intact Judgement/Insight (somewhat )

HPI: 83 year old female with past medical history of hypertension, nephrolithiasis and left ureteral stricture who presented to the emergency department for altered mental status and hypoxia post nephrolithiasis removal and stent exchange the day
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
Patient's son provided history due to patient's current mentation. The son stated that after the patient's procedure the day prior, he noticed the patient was confused. The son reports the patient was not responding to conversation and had
difficulty ambulating. Patient's son reported when they returned to the fdc facility, the patient was confused and had rigors. Nursing staff put the patient on oxygen after noticing her oxygen level was in the low 90s, this improved the
patient's mentation.
In the morning, nursing staff tried to take the patient off oxygen but patient's oxygen level returned to low 90s, prompting them to send the patient to the emergency department.
Upon arrival to the emergency department, patient was found to be febrile with temp 103.5F.
Patient denies cough, nausea, vomiting, diarrhea, dyuria or flank pain.
CT AP:
There is perinephric inflammation surrounding the right kidney, not seen previously. This may be related to recent procedure. There is a stent with one tip coiled in the kidney, and the other coiled in the bladder.
There is moderate hydronephrosis on the left, which appears chronic and related to chronic UPJ obstruction
There is dependent atelectasis in both lower lobes, similar to prior study
Common bile duct remains dilated, unchanged from prior study
A/P:
83-year-old female, here with sepsis due to complicated UTI/ R pyelo from recent right renal stent replacement. Cultures negative likely due to receiving antibiotic before obtaining cultures. She is stable, awaiting SNF.
# Severe Sepsis POA secondary to Complicated Urinary Tract Infection/ RIGHT pyelonephritis, following recent Right Ureteral Stent Exchange
# Acute metabolic encephalopathy likely due to sepsis, resolved
Pt is awake, conversant, appears AOX3
Urine culture no growth, blood culture negative- likely due to receiving antibiotic prior to culture collection
Continue Cefepime (with plan to change to PO Abx upon discharge) and treat for complicated UTI.
CT AP report as above
BP improved, stop further gentle IVF
Urology on board: No indication for urologic intervention, right ureteral stent in good position on CT. Plan for outpatient cysto + right stent removal after discharge. Eventual left nephrectomy due to h/o chronic obstructed L kidney; has F/U with
[facility] 11/16 to discuss left nephrectomy for poorly functioning and obstructed left kidney (known); labs all improving over weekend - WBC normalized, Cr downtrending to baseline; urology spoke w her and son extensively about plan
# History of left ureteral stricture prior left ureteral stent
# Acute hypoxic respiratory insufficiency, suspect related to severe sepsis on admission, resolved
Weaned off 3L NC back to RA
Chest X-Ray noted mild increase in pulmonary vasculature which suggests congestive heart failure or interstitial edema.
Monitor daily weight
given pt without weight gain, no crackle on exam, no pedal edema, has been weaned to RA, and no other sign of acute CHF, would hold off on diuretic at this point.
# Acute Kidney Injury
SCr was 1.5 from baseline 1.0
Cont to monitor
# Essential Hyperlipemia
Continue propranolol with hold parameters
# Hyperlipidemia
Continue Lipitor
# Peripheral Neuropathy
Continue gabapentin
# Essential Tremor
Continue Primidone and Propranolol
# Anxiety/Depression
Continue Sertraline
DVT proph: SC Heparin
Code Status: Full Code
DW Uro
DW RN
Anticipated Discharge: 24 - 48 hours
Subjective/Interval History
-
Date of Service: November 10, 2023
Patient was seen and examined. She reported no new significant symptoms or complaints, however has not had a bowel movement in a while.
Objective Data
-
Labs:
Laboratory Results
11/10/23
05:50
WBC 7.4
Hgb 8.8 L
Hct 27.1 L
Plt Count 195
Sodium 135
Potassium 4.3
Chloride 107
Carbon Dioxide 20 L
BUN 26 H
Creatinine 1.3 H
Glucose 90
Calcium 8.7
Vital Signs:
Vital Signs
Temp Pulse Resp BP Pulse Ox
97.9 F 63 20 123/70 98
11/10/23 07:59 11/10/23 09:01 11/10/23 07:59 11/10/23 09:01 11/10/23 07:59
I&O
11/09/23 11/10/23 11/11/23
06:59 06:59 06:59
Intake Total 1070 / 1070 1170 / 1170
Balance 1070 / 1070 1170 / 1170
--- NOTE | 2023-11-10 12:22 | CM ---
Spoke with Anh [phone] ext [phone] at [facility]. Anh said she does not have care port . Clinical faxed to [phone].
Anh said pt can return to rehab with part B Medicare. She used all her rehab days.
Will need Ambulance .
Pt may be ready for today.
[facility].Address [address] [place] [address] , [place] [id number]
report [phone] ext [phone]
fax [phone]
PLAN Retirn to [facility].
[2023-11-10] MEDS: MAXIPIME 1000 MG IV (13:12)
[2023-11-10] MEDS: STERILE WATER FOR INJECTION 10 ML IV (13:12)
[2023-11-10] MEDS: MIRALAX 17 GRAMS PO (18:08)
[2023-11-10] MEDS: SENOKOT-S 1 TABLET PO (20:41)
[2023-11-10] MEDS: MYSOLINE 75 MG PO (20:41)
[2023-11-10] MEDS: LIPITOR 10 MG PO (20:43)
[2023-11-11 05:46] VITALS: BMI 33.3
[2023-11-11 07:00] VITALS: BP 135/80
[2023-11-11] MEDS: MIRALAX 17 GRAMS PO (07:52)
[2023-11-11] MEDS: ZOLOFT 100 MG PO (07:52)
[2023-11-11] MEDS: INDERAL LA 60 MG PO (07:52)
[2023-11-11] MEDS: HEPARIN 5000 UNITS SC ×2 (07:52→15:24)
[2023-11-11] MEDS: NEURONTIN 300 MG PO (07:52)
[2023-11-11] MEDS: SENOKOT-S 1 TABLET PO (07:52)
[2023-11-11 08:24] LABS: % Eosinophils 5.5 % (0-6); % Immature Granulocytes 1.7 % (0-0.5); % Lymphocytes 18.2 % (20.5-51.1); % Monocytes 10.5 % (1.7-9.3); % Neutrophils 63.1 % (42.2-75.2); Absolute Basophils 0.1 10^3/uL (0-0.2); Absolute Eosinophils 0.4 10^3/uL (0-0.7); Absolute Immature Granulocytes 0.1 10^3/uL (0-0.05); Absolute Lymphocytes 1.3 10^3/uL (1.2-3.4); Absolute Monocytes 0.7 10^3/uL (0.1-0.6); Absolute Neutrophils 4.3 10^3/uL (1.4-6.5); Hematocrit 29.8 % (37.0-47.0); Hemoglobin 9.7 g/dL (12.0-16.0); Mean Corp Hgb Conc. 32.6 g/dL (33.0-37.0); Mean Corpuscular Hgb 28.3 pg (27.0-31.0); Mean Corpuscular Volume 86.9 fL (81.0-99.0); Nucleated Red Blood Cells % 0 %; Platelet Count 207 10^3/uL (130-400); Red Blood Cell Count 3.43 10^6/uL (4.20-5.40); Red Cell Dist. Width 14.2 % (11.5-14.5); White Blood Cell Count 6.9 10^3/uL (4.8-10.8)
[2023-11-11 09:07] LABS: Blood Urea Nitrogen 25 mg/dl (7-17); Carbon Dioxide 24 mmol/L (22-30); Chloride 106 mmol/L (98-107); Estimated Creatinine Clearance 34 ml/min; Glucose 87 mg/dl (70-99); Potassium 4.5 mmol/L (3.5-5.1); Sodium 138 mmol/L (135-145); eGFR 45.48
[2023-11-11] MEDS: TYLENOL 650 MG PO (11:17)
--- NOTE | 2023-11-11 11:24 | CON.ID ---
Consultation
-
Date/Time Consultation Requested: November 11, 2023 0718
Date/Time Consultation Performed: November 11, 2023 1125
Requesting Provider: Dt. Barrera Burrows
Performing Provider: Dr. Elizabeth Hanks
Reason for Consultation: Recommendations for oral antibiotics, UTI, colonized with MRSA
Chief Complaint / Past History
Chief Complaint
Change in mental status
History of Present Illness
83-year-old female with history of hypertension, nephrolithiasis right renal stent, who underwent cystoscopy, right ureteroscopy, laser lithotripsy, right ureteral stone extraction, right ureteral stent exchange on 11/06/23. Post- procedure, patient
developed confusion, rigors, and hypoxia. She was sent to ER on November 06. She was hypothermic. She then spiked fevers up to 103.5. Her white count was 22. She has been on cefepime day 5 with resolution of leukocytosis and fever. Today patient
reports she is feeling better except she is having some neck discomfort. No urinary symptoms. No flank pain. No diarrhea. No cough.
Past History
Additional Past Medical History:
Essential Hypertension
Hyperlipidemia
Anxiety/Depression
Peripheral Neuropathy
Essential Tremor
Osteoporosis
Nephrolithiasis with right ureter stent
Left ureter stricture with chronic hydronephrosis, for eventual left nephrectomy
Lumbar Compressor Fracture
Right Wrist ORIF
Vertebroplasty
Tonsillectomy
Appendectomy
Hernia Repair
Cataract Surgery
Allergy History:
crab Allergy (Verified 11/07/23 15:26)
SOFT SHELL-HIVES
No Known Drug Allergies Allergy (Verified 11/07/23 15:26)
NA
shellfish derived Allergy (Verified 11/07/23 15:26)
Hives
shrimp Allergy (Verified 11/07/23 15:26)
ABDOMINAL PAIN/FLUSHING
Medications Reviewed: Yes
Current Antibiotics:
Cefepime D5
Social History
Tobacco: Non-Smoker
Alcohol: None
Drug: None
Living: Retirement
Family History
Family History: Not Pertinent
Review of Systems
Review of Systems
HEENT: Negative Sinus Problems
Respiratory: Negative Dyspnea or Cough
Gasteroenterology: Negative Nausea or Vomiting
Genital / Urological: Negative Dysuria or Flank Pain
Skin / Hair / Nails: Negative Rash
Neurological: Negative Dizziness
Vital Signs
Temp Pulse Resp BP Pulse Ox
97.8 F 70 18 135/80 94
11/11/23 07:00 11/11/23 07:52 11/11/23 07:00 11/11/23 07:52 11/11/23 07:00
Physical Exam
Physical Exam
Constitutional: No Acute Distress and Comfortable
Eyes: No Conjunctival Hemorrhage and Sclera Anicteric
Cardiovascular: Regular Rate and S1/S2
Pulmonary: Clear
Gastrointestinal: Soft, Non Tender, Non Distended and Normal Bowel Sounds
Genito-Urinary: Negative Hanson or CVA Tenderness
Extremities: Negative Edema
Neurological: AO x 3; Negative Meningeal Signs
Lab / Diagnostic Study Results
11/11/23 07:52
11/11/23 07:52
Abs Immat Gran (auto) 0.1 10^3/uL (0-0.05) H 11/11/23 07:52
Absolute Neuts (auto) 4.3 10^3/uL (1.4-6.5) 11/11/23 07:52
Absolute Lymphs (auto) 1.3 10^3/uL (1.2-3.4) 11/11/23 07:52
Absolute Monos (auto) 0.7 10^3/uL (0.1-0.6) H 11/11/23 07:52
Absolute Basos (auto) 0.1 10^3/uL (0-0.2) 11/11/23 07:52
Immature Gran % 1.7 % (0-0.5) H 11/11/23 07:52
Neutrophils % 63.1 % (42.2-75.2) 11/11/23 07:52
Lymphocytes % 18.2 % (20.5-51.1) L 11/11/23 07:52
Monocytes % 10.5 % (1.7-9.3) H 11/11/23 07:52
Eosinophils % 5.5 % (0-6) 11/11/23 07:52
Basophils % 1.0 % (0-2) 11/11/23 07:52
Lactic Acid 1.4 mmol/L (0.7-2.0) 11/07/23 11:59
Ur Squamous Epith Cells 6-10 /LPF (Few) 11/07/23 11:59
Microbiology Results
Micro:
11/07/23 12:09 Blood Culture - Preliminary
Blood/Venous No Growth in 72 hours- Final report to follow
11/07/23 12:00 Blood Culture - Preliminary
Blood/Venous No Growth in 72 hours- Final report to follow
11/07/23 17:26 MRSA Screen - Final
Nose Staph aureus MRSA
11/07/23 11:59 Urine Culture - Final
Urine No Significant Growth
11/07/23 12:36 Influenza Types A & B (JEFFREY) - Final
Nasal Swab Negative for Influenza A & B, NAAT
Negative results must be combined with clinical observations
and patient history.
Nucleic Acid Amplification test (NAAT)performed on the
[employer] platform.
11/07/23 CT a/p: There is perinephric inflammation surrounding the right kidney, not seen previously. This may be related to recent procedure. There is a stent with one tip coiled in the kidney, and the other coiled in the bladder. There is
moderate hydronephrosis on the left, which appears chronic and related to chronic UPJ obstruction.
11/07/23 CXR:There is a mild increase in pulmonary vasculature which suggests congestive heart failure or interstitial edema. Please correlate clinically.
Assessment / Plan
# Post urological procedure fever/leukocytosis now resolved.
# s/p right laser lithotripsy, stent exchange 11/06/23
- ? transient bacteremia
- Ucx negative (received ceftriaxone pre-op)
- blood cx's negative.
- CT right perinephric stranding could be from recent procedure.
- Can transition cefepime to levofloxacin 750mg po q48h, last dose 11/15/23.
# MRSA colonized
-Modified contact precaution inpatient.
--- NOTE | 2023-11-11 11:43 | CM ---
Addendum entered by ERROL Feliciano 11/11/23 14:28:
Received message from attending that ID cleared patient. Placed a call to Mckenzie in admissions at [facility]. who confirmed that they can take patient back today. Medical necessity and transfer sheet completed and provided to [employer] community health director.
Addendum entered by ERROL Feliciano 11/11/23 12:08:
Messaged attending who stated that ID still needs to see patient. Will update, Mckenzie.
Original Note:
Received a call from Mckenzie SW/Admissions at [facility]-[phone] who stated that she has a bed for patient today
#For report [phone] .
Will update attending about availability.
Plan: Case management will continue to follow and assist with discharge planning. [facility], when stable.
[2023-11-11] MEDS: STERILE WATER FOR INJECTION 10 ML IV (11:58)
[2023-11-11] MEDS: MAXIPIME 1000 MG IV (11:59)
--- NOTE | 2023-11-11 14:59 | W.PN.HOSP.TC ---
Today's Communication/Plan
-
Discharge today
Assessment / Plan
Assessment / Plan
Physical Exam
General: Not in acute distress
Respiratory: Clear to Auscultation Bilaterally
Cardiac: Regular Rhythm and S1/S2
GI: Soft and Nontender. Positive Bowel Sounds.
Skin: Warm and Dry
Neuro: Awake and Tremors (chronic )
Psych: Calm and Intact Judgement/Insight (somewhat )

HPI: 83 year old female with past medical history of hypertension, nephrolithiasis and left ureteral stricture who presented to the emergency department for altered mental status and hypoxia post nephrolithiasis removal and stent exchange the day
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
Patient's son provided history due to patient's current mentation. The son stated that after the patient's procedure the day prior, he noticed the patient was confused. The son reports the patient was not responding to conversation and had
difficulty ambulating. Patient's son reported when they returned to the care home facility, the patient was confused and had rigors. Nursing staff put the patient on oxygen after noticing her oxygen level was in the low 90s, this improved the
patient's mentation.
In the morning, nursing staff tried to take the patient off oxygen but patient's oxygen level returned to low 90s, prompting them to send the patient to the emergency department.
Upon arrival to the emergency department, patient was found to be febrile with temp 103.5F.
Patient denies cough, nausea, vomiting, diarrhea, dyuria or flank pain.
CT AP:
There is perinephric inflammation surrounding the right kidney, not seen previously. This may be related to recent procedure. There is a stent with one tip coiled in the kidney, and the other coiled in the bladder.
There is moderate hydronephrosis on the left, which appears chronic and related to chronic UPJ obstruction
There is dependent atelectasis in both lower lobes, similar to prior study
Common bile duct remains dilated, unchanged from prior study
A/P:
83-year-old female, here with sepsis due to complicated UTI/ R pyelo from recent right renal stent replacement. Cultures negative likely due to receiving antibiotic before obtaining cultures. She is stable, awaiting SNF.
# Severe Sepsis POA secondary to Complicated Urinary Tract Infection/ RIGHT pyelonephritis, following recent Right Ureteral Stent Exchange and status post right laser lithotripsy, stent exchange 11/06/23
# Acute metabolic encephalopathy likely due to sepsis, resolved
Pt is awake, conversant, appears AOX3
Urine culture no growth, blood culture negative- likely due to receiving antibiotic prior to culture collection
Status post Cefepime
ID evaluation and recommendations appreciated
Can transition cefepime to levofloxacin 750mg po q48h, last dose 11/15/23.
CT AP report as above
BP improved, stop further gentle IVF
Urology on board: No indication for urologic intervention, right ureteral stent in good position on CT. Plan for outpatient cysto + right stent removal after discharge. Eventual left nephrectomy due to h/o chronic obstructed L kidney; has F/U with
[facility] 11/16 to discuss left nephrectomy for poorly functioning and obstructed left kidney (known); labs all improving over weekend - WBC normalized, Cr downtrending towards baseline; urology spoke w her and son extensively about plan
# History of left ureteral stricture prior left ureteral stent
# Acute hypoxic respiratory insufficiency, suspect related to severe sepsis on admission, resolved
Weaned off 3L NC back to RA
Chest X-Ray noted mild increase in pulmonary vasculature which suggests congestive heart failure or interstitial edema.
Monitor daily weight
given pt without weight gain, no crackle on exam, no pedal edema, has been weaned to RA, and no other sign of acute CHF, would hold off on diuretic at this point.
# Acute Kidney Injury
SCr was 1.5 from baseline 1.0, coming back down towards baseline
Cont to monitor
# Essential Hyperlipemia
Continue propranolol with hold parameters
# Hyperlipidemia
Continue Lipitor
# Peripheral Neuropathy
Continue gabapentin
# Essential Tremor
Continue Primidone and Propranolol
# Anxiety/Depression
Continue Sertraline
DVT proph: SC Heparin
Code Status: Full Code
DW RN
More than 30 minutes spent in discharge including
Final examination of the patient
Summarizing hospital stay
Instructions for continuing care to all relevant caregivers
Preparation of discharge records, prescriptions, and referral forms
Total time spent (in minutes): 40
Anticipated Discharge: Today
Subjective/Interval History
-
Date of Service: November 11, 2023
Patient was seen and examined. She reported no new significant symptoms or complaints.
Objective Data
-
Labs:
Laboratory Results
11/11/23
07:52
WBC 6.9
Hgb 9.7 L
Hct 29.8 L
Plt Count 207
Sodium 138
Potassium 4.5
Chloride 106
Carbon Dioxide 24
BUN 25 H
Creatinine 1.2 H
Glucose 87
Calcium 9.0
Vital Signs:
Vital Signs
Temp Pulse Resp BP Pulse Ox
97.8 F 70 18 135/80 94
11/11/23 07:00 11/11/23 07:52 11/11/23 07:00 11/11/23 07:52 11/11/23 07:00
I&O
11/10/23 11/11/23 11/12/23
06:59 06:59 06:59
Intake Total 1170 / 1170 1020 / 1020
Balance 1170 / 1170 1020 / 1020
--- NOTE | 2023-11-11 15:19 | W.DS.TRANS ---
DC Summary - Consulting Intern
-
Discharge Instructions:
Discharge Diagnosis/Procedures # Severe Sepsis POA secondary to Complicated
Urinary Tract Infection/ RIGHT pyelonephritis,
following recent Right Ureteral Stent Exchange
and status post right laser lithotripsy, stent
exchange 11/06/23
# Acute metabolic encephalopathy likely due to
sepsis, resolved
# History of left ureteral stricture prior left
ureteral stent
# Acute hypoxic respiratory insufficiency,
suspect related to severe sepsis on admission,
resolved
# Acute Kidney Injury
# Essential Hyperlipemia
# Hyperlipidemia
# Peripheral Neuropathy
# Essential Tremor
# Anxiety/Depression

CT Abdomen/Pelvis Imaging Results (as per
radiologist's report):
'IMPRESSION:
There is perinephric inflammation surrounding
the right kidney, not seen previously. This may
be related to recent procedure. There is a stent
with one tip coiled in the kidney, and the
other coiled in the bladder.
There is moderate hydronephrosis on the left,
which appears chronic and related to chronic UPJ
obstruction
There is dependent atelectasis in both lower
lobes, similar to prior study
Common bile duct remains dilated, unchanged from
prior study'

Chest X-Ray Results (as per radiologist's report
):
'IMPRESSION:
There is a mild increase in pulmonary
vasculature which suggests congestive heart
failure or interstitial edema. Please correlate
clinically.'
Diet As tolerated
Activity With assistance
Blood Work Need CBC with differential, CMP, Magnesium and
QTc check (check EKG to make sure QTc not
prolonged) in 1 to 2 days
Other Services PT,OT
Specialty Instructions Weigh Daily
Instructions:
Stand-Alone Forms:
Changes to Home Medications: Yes
Discharge Medications:
DC Medications w/original date entered in [employer]
melatonin 10 mg tablet 10 mg PO HS INSOMNIA 10/11/19
vitamins A,C,A-magb-madpwi 4,296 mcg-226 mg-90 mg capsule (PreserVision AREDS) 1 cap PO BID Supplement 10/07/20
gabapentin 300 mg capsule 300 mg PO BID POLYMYALGIA RHEUMATICA 07/24/21
atorvastatin 10 mg tablet (Lipitor) 10 mg PO HS High Cholesterol 09/25/23
calcium carbonate (Calcium 600) 600 mg PO DAILY Supplement 09/25/23
carboxymethylcellulose 0.5 %-glycerin 0.9 % eye drops (Refresh Optive) 1 drp BOTH EYES QIDPRN PRN DRY EYES 09/25/23
estradiol 0.01% (0.1 mg/gram) vaginal cream (Estrace) 1 appful vaginal Q48H@2000 Frequent UTI 09/25/23
lutein 20 mg capsule 20 mg PO DAILY Supplement 09/25/23
propranolol 60 mg capsule,24 hr,extended release 60 mg PO DAILY tremors/HTN 09/25/23
sertraline 100 mg tablet 100 mg PO DAILY Depression 09/25/23
acetaminophen 325 mg tablet 650 mg PO Q4HPRN PRN temp>100.5/pain 10/23/23
nitrofurantoin macrocrystal 100 mg capsule 100 mg PO HS prophylactic for UTI 10/23/23
primidone 50 mg tablet 75 mg PO HS tremors 10/23/23
sorbitol 70 % solution 30 ml PO [id number] PRN constipation 10/23/23
polyethylene glycol 3350 17 gram oral powder packet (Miralax) 17 g PO DAILYPRN PRN Constipation 11/03/23
phenazopyridine 200 mg tablet (Pyridium) 200 mg PO TIDPRN PRN dysuria 11/07/23
therapeutic multivitamin 1 tab PO QPM Supplement 11/07/23
levofloxacin 750 mg tablet 750 mg PO Q48H #2 tabs 11/11/23
sennosides 8.6 mg-docusate sodium 50 mg tablet (Stool Softener-Stimulant Laxative) 1 tab PO BID #60 tabs 11/11/23
Home Medication Changes
Levofloxacin and Sennoside-Docusate are new medications.
Hold Nitrofurantoin and Pyridium and re-evaluate for restart with outpatient PCP and/or urologist.
Pending Results: Yes
Additional Pending Results:
Final results of blood cultures from hospitalization
Total time spent discharging patient (in min): 40
--- NOTE | 2023-11-11 19:49 | PTCARENOTE ---
report given to ems. pt transported to facility w/o issue. belongings with patient
--- NOTE | 2023-11-14 12:54 | W.DCSUMMARY ---
Discharge Summary
Discharge Data
Date of Admission: 11/07/23
Date of Discharge: 11/11/23
Total time spent discharging patient (in min): 40
-
Pending Results: Yes
Additional Pending Results:
Final results of blood cultures from hospitalization
Hospital Course
83 year old female with past medical history of hypertension, nephrolithiasis and left ureteral stricture who presented to the emergency department for altered mental status and hypoxia post nephrolithiasis removal and stent exchange the day prior
to arrival on 11/06/23. Patient was admitted with severe sepsis secondary to urinary tract infection following recent right ureteral stent exchange and acute metabolic encephalopathy likely due to sepsis/infection. Patient was started on Cefepime
and urology was consulted. CT imaging was performed. Urology mentioned there was no indication for urologic intervention at the time, and the plan was for outpatient cysto + right stent removal after discharge. Infectious Disease was consulted and
patient was switched to Levofloxacin on discharge. 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
Discharge Plan
-
Patient Disposition: [facility]NF
Discharge Diagnosis/Procedures: # Severe Sepsis POA secondary to Complicated Urinary Tract Infection/ RIGHT pyelonephritis, following recent Right Ureteral Stent Exchange and status post right laser lithotripsy, stent exchange 11/06/23
# Acute metabolic encephalopathy likely due to sepsis, resolved
# History of left ureteral stricture prior left ureteral stent
# Acute hypoxic respiratory insufficiency, suspect related to severe sepsis on admission, resolved
# Acute Kidney Injury
# Essential Hyperlipemia
# Hyperlipidemia
# Peripheral Neuropathy
# Essential Tremor
# Anxiety/Depression

CT Abdomen/Pelvis Imaging Results (as per radiologist's report):
'IMPRESSION:
There is perinephric inflammation surrounding the right kidney, not seen previously. This may be related to recent procedure. There is a stent with one tip coiled in the kidney, and the other coiled in the bladder.
There is moderate hydronephrosis on the left, which appears chronic and related to chronic UPJ obstruction
There is dependent atelectasis in both lower lobes, similar to prior study
Common bile duct remains dilated, unchanged from prior study'

Chest X-Ray Results (as per radiologist's report):
'IMPRESSION:
There is a mild increase in pulmonary vasculature which suggests congestive heart failure or interstitial edema. Please correlate clinically.'
Condition: Fair
Diet: As tolerated
Activity: With assistance
Blood Work: Need CBC with differential, CMP, Magnesium and QTc check (check EKG to make sure QTc not prolonged) in 1 to 2 days
Other Services: PT and OT
Specialty Instructions: Weigh Daily- Call MD for wt gain/loss 3 lbs overnight/5 lbs in 1 week
Activity Restrictions/Additional Instructions:
Need CBC with differential, CMP, Magnesium and QTc check (check EKG to make sure QTc not prolonged) in 1 to 2 days
Referrals:
Matthew Dudley MD [Active] - in one to two weeks (Hospital follow-up. CXR in October 2023 with possible CHF, requesting evaluation for CHF.)
Niraj Nolasco MD [Family Provider] - in less than 1 week
Nuno Rodas MD [Active] - in one week
Additional Discharge Medication Instructions: Levofloxacin and Sennoside-Docusate are new medications.
Hold Nitrofurantoin and Pyridium and re-evaluate for restart with outpatient PCP and/or urologist.
Prescriptions:
New
levofloxacin 750 mg Tablet
750 mg PO Q48H Qty: 2 0RF
Rx Instructions:
Start on 11/13/23 and last dose should be on 11/15/23.
sennosides-docusate sodium [Stool Softener-Stimulant Laxat] 8.6-50 mg Tablet
1 tab PO BID Qty: 60 0RF
Continued
melatonin 10 MG tablet
10 mg PO HS
PreserVision AREDS 1 CAP capsule
1 cap PO BID
gabapentin 300 MG capsule
300 mg PO BID
atorvastatin [Lipitor] 10 mg Tablet
10 mg PO HS
propranolol 60 mg Capsule,Extended Release 24 Hr
60 mg PO DAILY
sertraline 100 mg Tablet
100 mg PO DAILY
calcium carbonate [Calcium 600] 600 mg calcium (1,500 mg) Tablet
600 mg PO DAILY
estradiol [Estrace] 0.01 % (0.1 mg/gram) Cream
1 appful VAGINAL Q48H@1999
lutein 20 mg Capsule
20 mg PO DAILY
Refresh Optive 0.5-0.9 % Drops
1 drp BOTH EYES QIDPRN PRN (Reason: DRY EYES)
acetaminophen 325 mg Tablet
650 mg PO Q4HPRN PRN (Reason: temp>100.5/pain)
Rx Instructions:
Do not exceed 3gm/24hrs
sorbitol 70 % Solution
30 ml PO M36SANT PRN (Reason: constipation)
primidone 50 mg tablet
75 mg PO HS
polyethylene glycol 3350 [Miralax] 17 gram Powder In Packet
17 g PO DAILYPRN PRN (Reason: Constipation)
Rx Instructions:
daily PRN
therapeutic multivitamin Tablet
1 tab PO QPM
Held
nitrofurantoin macrocrystal 100 mg Capsule
100 mg PO HS
Hold Instructions: Resume on 11/25/23. Review with outpatient primary care and urologist the need to continue this medication before resuming this medication.
phenazopyridine [Pyridium] 200 mg Tablet
200 mg PO TIDPRN PRN (Reason: dysuria)
Hold Instructions: Resume on 11/25/23. Review with outpatient primary care and urologist the need to continue this medication before resuming this medication.
Discharge Orders:
Discharge Patient (As Directed); Ordered 11/11/23
Ordered By: Barrera Burrows
Discharge Date and Time
Discharge Date/Time: 11/11/23 19:49
Print Language: LATVIAN
== END 2023-11-11 19:49 | DRG 862 ==
LOC: 3 WEST ACU 14:49
PROVIDERS: Emergency Medicine; Physician Assistant Medical; ADMITTING PHYSICIAN Internal Medicine; ATTENDING PHYSICIAN Hospitalist; CONSULT PHYSICIAN Surgery; EMERGENCY PHYSICIAN Emergency Medicine; FAMILY PHYSICIAN Internal Medicine; OTHER PHYSICIAN Internal Medicine Infectious Disease
DX: T81.44XA Sepsis following a procedure, initial encounter (principal); A41.9 Sepsis, unspecified organism; G93.41 Metabolic encephalopathy; R65.20 Severe sepsis without septic shock; N17.9 Acute kidney failure, unspecified; N13.6 Pyonephrosis; Y83.8 Other surgical procedures as the cause of abnormal reaction of the patient, or of later complication, without mention of misadventure at the time of the procedure; I10 Essential (primary) hypertension; R09.02 Hypoxemia; F32.A Depression, unspecified; F41.9 Anxiety disorder, unspecified; G62.9 Polyneuropathy, unspecified; G25.0 Essential tremor; M81.0 Age-related osteoporosis without current pathological fracture; E66.9 Obesity, unspecified; E78.00 Pure hypercholesterolemia, unspecified; Z68.33 Body mass index [BMI] 33.0-33.9, adult; Z87.442 Personal history of urinary calculi; Z22.322 Carrier or suspected carrier of Methicillin resistant Staphylococcus aureus; Z11.52 Encounter for screening for COVID-19
CPT/HCPCS: 71045; 74176; 80048; 80053; 81003; 81015; 82248; 83605; 83735; 83880; 85025; 85027; 87040; 87070; 87086; 87147; 87502; 87811; 93005; 96361; 96374; 96375; 97162; 97166; 97535; 99291

== ENCOUNTER 2023-11-20 10:26 | Inpatient (IN) | payer MEDICARE, OTHER, SELFPAY ==
--- NOTE | 2023-11-18 09:27 | PTCARENOTE ---
Abn ECG, Dr. Almazan notified, no actions requested.
[2023-11-20] VITALS (17 sets, daily range): BP systolic 103–149; BP diastolic 50–88; BMI 33.0
--- NOTE | 2023-11-20 11:29 | PTCARENOTE ---
Called [facility] to go over medication list to see when meds were last taken. See MAR.
[2023-11-20] MEDS: NORMOSOL-R 1000 IV (11:33)
--- NOTE | 2023-11-20 11:50 | PTCARENOTE ---
The T & S hemolyzed. New T & S sent.
[2023-11-20] MEDS: DILAUDID 0.5 MG IV (15:36)
--- NOTE | 2023-11-20 15:37 | W.IMMPOSTOP ---
Surgical Immed Post Op Note
-
Primary Surgeon: Rodolfofer
Assisting Surgeon: none
Pre-op Diagnosis: chronic L UPJ obstruction, recurrent infection, atrophic kidney
Post-op Diagnosis: same
Procedure Performed: Robotic L nephrectomy
Anesthesia Type: general
Specimen / Cultures: L kidney
Estimated Blood Loss: 50cc
Complications: none
Operative Findings: -
[2023-11-20 16:24] LABS: Hematocrit 32.4 % (37.0-47.0); Hemoglobin 10.7 g/dL (12.0-16.0)
[2023-11-20] MEDS: DILAUDID 0.25 MG IV ×2 (16:26→16:42)
[2023-11-20 16:38] LABS: Blood Urea Nitrogen 21 mg/dl (7-17); Calcium 8.7 mg/dl (8.4-10.2); Carbon Dioxide 25 mmol/L (22-30); Chloride 104 mmol/L (98-107); Estimated Creatinine Clearance 40 ml/min; Glucose 113 mg/dl (70-99); Sodium 137 mmol/L (135-145)
[2023-11-20] MEDS: NSS 1000 IV (17:11)
--- NOTE | 2023-11-20 18:00 | PTCARENOTE ---
Pt received from the PACU via bed. Transport was w/o incident. Pt is awake and alert. Pt w/ slow speech as per baseline and notable tremors b/l upper ext. VSS, Pt is afebrile. Pt's abd with 5 Lap sites, well approximated with surgi glue. Pt denies
nausea and denies pain at this time. Pt instructed on plan of care. Pt verbalized understanding of instructions. Call mendez is within reach.
[2023-11-20] MEDS: NEURONTIN 300 MG PO (20:51)
[2023-11-20] MEDS: SENOKOT PO ×2 (20:51→20:55)
[2023-11-20] MEDS: LIPITOR 10 MG PO (20:51)
[2023-11-20] MEDS: PERCOCET 5/325 1 TABLET PO (20:58)
[2023-11-20] MEDS: MELATONIN 10 MG PO (21:46)
[2023-11-20] MEDS: MYSOLINE 75 MG PO (21:46)
[2023-11-21] VITALS (7 sets, daily range): BP systolic 93–142; BP diastolic 58–66; PULSE 72; O2SAT 96
[2023-11-21 05:49] LABS: Hematocrit 29.3 % (37.0-47.0); Hemoglobin 9.5 g/dL (12.0-16.0); Mean Corp Hgb Conc. 32.4 g/dL (33.0-37.0); Mean Corpuscular Hgb 28.5 pg (27.0-31.0); Mean Platelet Volume 8.5 fL (7.4-10.4); Platelet Count 310 10^3/uL (130-400); Red Blood Cell Count 3.33 10^6/uL (4.20-5.40); Red Cell Dist. Width 14.6 % (11.5-14.5); White Blood Cell Count 8.3 10^3/uL (4.8-10.8)
[2023-11-21 06:12] LABS: Blood Urea Nitrogen 23 mg/dl (7-17); Calcium 8.6 mg/dl (8.4-10.2); Carbon Dioxide 22 mmol/L (22-30); Chloride 107 mmol/L (98-107); Estimated Creatinine Clearance 34 ml/min; Glucose 96 mg/dl (70-99); Potassium 5.4 mmol/L (3.5-5.1); Sodium 136 mmol/L (135-145); eGFR 45.48
[2023-11-21] MEDS: NEURONTIN 300 MG PO ×2 (08:33→20:51)
[2023-11-21] MEDS: SENOKOT PO ×2 (08:33→20:51)
[2023-11-21] MEDS: ZOLOFT 100 MG PO (08:33)
[2023-11-21] MEDS: INDERAL LA 60 MG PO (08:34)
--- NOTE | 2023-11-21 08:50 | W.PN.URO.CBU ---
Today's Communication / Plan
-
as above
Assessment / Plan
-
83F with recurrent pyelonephritis from chronically obstructed left kidney, bilateral large renal stones
s/p Robotic left nephrectomy 11/20
- Advance to regular diet
- Remove oconnor
- Trend renal function - at baseline creatine 1.2 POD 1
- OOB/ambulate as able
- PT/OT/Case management - likely will go back to [facility]
- R ureteral stent to remain in place until removal at follow up
- Continue abx coverage Levaquin daily
Diagnosis
-
Date of Service: November 21, 2023
-
Patient Diagnosis:
L UPJ obstruction
atrophic L kidney
Recurrent infection
Post Op s/p Robotic L nephrectomy 11/19
Subjective
-
some pain at incision this AM but hasn't received pain meds
tolerated clears - minimal
Objective
-
Vital Signs
Temp Pulse Resp BP Pulse Ox
98.4 F 77 18 103/58 94
11/21/23 07:15 11/21/23 08:34 11/21/23 07:15 11/21/23 08:34 11/21/23 08:00
Intake and Output
11/20/23 11/21/23 11/22/23
06:59 06:59 06:59
Intake Total 1125 / 1125
Output Total 550 / 550
Balance 575 / 575
Intake:
IV fluids (Total) 1125 / 1125
Normosol 225 / 225
Output:
Urine, Oconnor 550 / 550
Other:
Number of approximated LARGE 1
amounts of urine
Laboratory Results
11/21/23 04:46
11/21/23 04:46
Physical Exam
-
General - well developed, well nourished, no acute distres, tremulous
Chest - clear bilaterally
Abdomen - soft, non-tender
Oconnor clear yellow
Skin - warm & dry with no rash
Neuro - AOx3, no motor deficits
Incision - clean, dry
Dressing - clean, dry, intact
[2023-11-21] MEDS: PERCOCET 5/325 1 TABLET PO (08:59)
[2023-11-21] MEDS: LEVAQUIN 50 IV (11:24)
--- NOTE | 2023-11-21 17:05 | CM ---
met with patient at bedside.she lives at [facility] apt with an elevator,she amb short distances with rw,states she is I with her adl.daughter paulo is her poa,rk rodriguez is her psychiatric np.she has had a vn and been to ip rehab at [place].
patient is sp left nephrectomy,hr oconnor will be removed,right stent to remain until seen in follow up.seen by darlin who rec snf loc.referral sent to [facility].
[2023-11-21] MEDS: MYSOLINE 75 MG PO (20:52)
[2023-11-21] MEDS: MELATONIN 10 MG PO (20:52)
[2023-11-21] MEDS: LIPITOR 10 MG PO (20:52)
[2023-11-22 06:14] LABS: Hematocrit 29.1 % (37.0-47.0); Hemoglobin 9.4 g/dL (12.0-16.0); Mean Corp Hgb Conc. 32.3 g/dL (33.0-37.0); Mean Corpuscular Hgb 28.5 pg (27.0-31.0); Mean Corpuscular Volume 88.2 fL (81.0-99.0); Mean Platelet Volume 8.4 fL (7.4-10.4); Platelet Count 245 10^3/uL (130-400); Red Cell Dist. Width 14.6 % (11.5-14.5); White Blood Cell Count 8.7 10^3/uL (4.8-10.8)
[2023-11-22 06:37] LABS: Blood Urea Nitrogen 22 mg/dl (7-17); Calcium 9.3 mg/dl (8.4-10.2); Carbon Dioxide 24 mmol/L (22-30); Chloride 104 mmol/L (98-107); Estimated Creatinine Clearance 29 ml/min; Glucose 88 mg/dl (70-99); Potassium 4.7 mmol/L (3.5-5.1); Sodium 138 mmol/L (135-145)
[2023-11-22 07:12] VITALS: BP 117/62
[2023-11-22] MEDS: NEURONTIN 300 MG PO ×2 (09:01→20:40)
[2023-11-22] MEDS: INDERAL LA 60 MG PO (09:01)
[2023-11-22] MEDS: ZOLOFT 100 MG PO (09:01)
[2023-11-22] MEDS: SENOKOT PO (09:02)
[2023-11-22] MEDS: PERCOCET 5/325 1 TABLET PO (09:05)
--- NOTE | 2023-11-22 10:43 | W.PN.URO.CBU ---
Today's Communication / Plan
-
IF ROOM AVAIABLE BY TOMORROW TRANSFER TO [facility] [place] [place] [facility][CASE MANGEMENT AWARE
Assessment / Plan
-
83F with recurrent pyelonephritis from chronically obstructed left kidney, bilateral large renal stones
s/p Robotic left nephrectomy 11/20
- Advance to regular diet
- Remove oconnor
- Trend renal function - at baseline creatine 1.2 POD 1
- OOB/ambulate as able
- PT/OT/Case management - likely will go back to [facility]
- R ureteral stent to remain in place until removal at follow up
- Continue abx coverage Levaquin daily
Diagnosis
-
Date of Service: November 22, 2023
-
Patient Diagnosis:
Post Op Day:
Patient Diagnosis:
L UPJ obstruction
atrophic L kidney
Recurrent infection
Post Op s/p Robotic L nephrectomy 11/19
Subjective
-
NO COMPLAINTS
Objective
-
Vital Signs
Temp Pulse Resp BP Pulse Ox
98.5 F 72 17 117/62 97
11/22/23 07:12 11/22/23 07:12 11/22/23 07:12 11/22/23 07:12 11/22/23 07:12
Intake and Output
11/21/23 11/22/23 11/23/23
06:59 06:59 06:59
Intake Total 1125 / 1125 410 / 410
Output Total 550 / 550 450 / 450
Balance 575 / 575 -40 / -40
Intake:
Oral fluids 360 / 360
IV fluids (Total) 1125 / 1125
Normosol 225 / 225
IV piggybacks 50 / 50
Output:
Urine, Oconnor 550 / 550 450 / 450
Other:
Number of approximated MODERATE 1
amounts of urine
Number of approximated LARGE 1
amounts of urine
How many times incontinent 1
SMALL amount urine
How many times incontinent 1
MODERATE amount urine
How many times incontinent 2
SATURATED amount urine
Laboratory Results
11/22/23 05:55
11/22/23 05:55
Review of Systems
-
: Flank Pain
Physical Exam
-
General - well developed, well nourished, no acute distress
Chest - clear bilaterally
Abdomen - soft, non-tender, positive bowel sounds, no CVAT, no incisional pain or distention
Genitalia - normal
Rectal - normal
Skin - warm & dry with no rash
Neuro - AOx3, no motor deficits
Extremities - no clubbing, no cyanosis, no edema
Incision - clean, dry
Dressing - clean, dry, intact
Care Review
Data Reviewed
Discussed with: Nursing and Other (SOCIAL SERVCES)
[2023-11-22] MEDS: LEVAQUIN 50 IV (12:51)
[2023-11-22] MEDS: FLUSH (NSS) 2 FLUSH IV (12:53)
[2023-11-22 15:02] VITALS: BP 101/58
--- NOTE | 2023-11-22 16:08 | CM ---
Patient for possible transfer to [facility]. VM left for admissions requesting call back regarding possible discharge tomorrow. CM called to the nursing quilting supervisor at facility. they do not have access to all scripts per nursing quilting supervisor
Awilda. CM will fax clinicals to [phone]/ phone number is [phone]. CM will continue to follow for discharge planning needs.
Plan; SNF referral
[2023-11-22] MEDS: SENOKOT 8.6 MG PO (20:40)
[2023-11-22] MEDS: LIPITOR 10 MG PO (21:19)
[2023-11-22] MEDS: MYSOLINE 75 MG PO (21:19)
[2023-11-22] MEDS: MELATONIN 10 MG PO (21:19)
[2023-11-22 23:17] VITALS: BP 119/59
[2023-11-23 06:05] LABS: Hemoglobin 9.3 g/dL (12.0-16.0); Mean Corp Hgb Conc. 32.1 g/dL (33.0-37.0); Mean Corpuscular Hgb 28.8 pg (27.0-31.0); Mean Corpuscular Volume 89.8 fL (81.0-99.0); Mean Platelet Volume 8.7 fL (7.4-10.4); Platelet Count 223 10^3/uL (130-400); Red Blood Cell Count 3.23 10^6/uL (4.20-5.40); Red Cell Dist. Width 14.5 % (11.5-14.5); White Blood Cell Count 8.1 10^3/uL (4.8-10.8)
[2023-11-23 06:21] LABS: Blood Urea Nitrogen 23 mg/dl (7-17); Calcium 8.8 mg/dl (8.4-10.2); Carbon Dioxide 24 mmol/L (22-30); Chloride 102 mmol/L (98-107); Estimated Creatinine Clearance 31 ml/min; Glucose 92 mg/dl (70-99); Potassium 4.5 mmol/L (3.5-5.1); Sodium 134 mmol/L (135-145); eGFR 41.31
[2023-11-23 07:30] VITALS: BP 106/64
[2023-11-23] MEDS: NEURONTIN 300 MG PO (07:46)
[2023-11-23] MEDS: INDERAL LA 60 MG PO (07:46)
[2023-11-23] MEDS: SENOKOT 8.6 MG PO (07:47)
[2023-11-23] MEDS: ZOLOFT 100 MG PO (07:47)
[2023-11-23] MEDS: MIRALAX 17 GRAMS PO (07:51)
[2023-11-23] MEDS: TYLENOL 650 MG PO (08:05)
--- NOTE | 2023-11-23 08:14 | CM ---
Clinical information faxed to [facility]. CM will call to confirm bed and discuss with patient IMM form. CM will continue to follow for discharge planning needs.
--- NOTE | 2023-11-23 10:11 | W.PN.URO.CBU ---
Today's Communication / Plan
-
home if bd avaialgbl if not cx discharge
Assessment / Plan
-
83F with recurrent pyelonephritis from chronically obstructed left kidney, bilateral large renal stones
s/p Robotic left nephrectomy 11/20
- Advance to regular diet
- Remove oconnor
- Trend renal function - at baseline creatine 1.2 POD 1
- OOB/ambulate as able
- PT/OT/Case management - likely will go back to [facility]
- R ureteral stent to remain in place until removal at follow up
- Continue abx coverage Levaquin daily
Diagnosis
-
Date of Service: November 23, 2023
-
Patient Diagnosis:
Post Op Day:
Patient Diagnosis:
Post Op Day:
Patient Diagnosis:
L UPJ obstruction
atrophic L kidney
Recurrent infection
Post Op s/p Robotic L nephrectomy 11/19
Subjective
-
fels well
Objective
-
Vital Signs
Temp Pulse Resp BP Pulse Ox
99 F 74 16 106/64 90
11/23/23 07:30 11/23/23 07:46 11/23/23 07:30 11/23/23 07:46 11/23/23 07:30
Intake and Output
11/22/23 11/23/23 11/24/23
06:59 06:59 06:59
Intake Total 410 / 410 1070 / 1070
Output Total 450 / 450
Balance -40 / -40 1070 / 1070
Intake:
Oral fluids 360 / 360 1020 / 1020
IV piggybacks 50 / 50 50 / 50
Output:
Urine, O[place]nor 450 / 450
Other:
Number of approximated MODERATE 1
amounts of urine
How many times incontinent 1
SMALL amount urine
How many times incontinent 1
MODERATE amount urine
How many times incontinent 2 2
SATURATED amount urine
Laboratory Results
11/23/23 05:28
11/23/23 05:28
Review of Systems
-
: No Symptoms
Physical Exam
-
General - well developed, well nourished, no acute distress
Chest - clear bilaterally
Abdomen - soft, non-tender, positive bowel sounds, no CVAT, no incisional pain or distention
Genitalia - normal
Rectal - normal
Skin - warm & dry with no rash
Neuro - AOx3, no motor deficits
Extremities - no clubbing, no cyanosis, no edema
Incision - clean, dry
Dressing - clean, dry, intact
Care Review
Data Reviewed
Discussed with: Nursing
--- NOTE | 2023-11-23 13:24 | CM ---
CM spoke with patient and with patient daughter/son. CM reviewed IMM and patient daughter requested blank form to be emailed to her to review. Patient daughter indicated she would call cm back to review if patient felt she could sign. CM emailed
to patient daughter at [email or web address]. CM spoke with Joel at facility and they will accept patient between 3-7pm. Patient daughter reviewed all questions with regard to patient return, CM provided information about [facility] program and
[facility]. Please fax clinicals to [phone]/ and call report to phone number is [phone], ask for nursing supervisor brew house. CM will continue to follow for discharge planning needs.
Plan; return to SNF
[2023-11-23] MEDS: LEVAQUIN 50 IV (13:56)
[2023-11-23 15:03] VITALS: BP 100/53
--- NOTE | 2023-11-23 16:47 | PTCARENOTE ---
Report given to Nursing Television Mechanic at [facility]. Television Mechanic had requested a script for percocet- Dr. Muniz stated he would sent to facility in AM and to give tylenol/motrin tonight. Attempted to call back supevisor but unable to
reach- note written on discharge paperwork with information and number to be contacted with questions.
== END 2023-11-23 17:20 | DRG 661 ==
LOC: 2 SOUTH 10:26
PROVIDERS: ADMITTING PHYSICIAN Urology; FAMILY PHYSICIAN Internal Medicine
PROC: 0TT14ZZ Resection of Left Kidney, Percutaneous Endoscopic Approach (ICD-10-PCS; 2023-11-20)
PROC: 8E0W4CZ Robotic Assisted Procedure of Trunk Region, Percutaneous Endoscopic Approach (ICD-10-PCS; 2023-11-20)
DX: N11.1 Chronic obstructive pyelonephritis (principal); N26.1 Atrophy of kidney (terminal); N39.41 Urge incontinence; M54.9 Dorsalgia, unspecified; Z79.899 Other long term (current) drug therapy; Z87.442 Personal history of urinary calculi; Z87.440 Personal history of urinary (tract) infections; Z87.891 Personal history of nicotine dependence
CPT/HCPCS: 88307; 80048; 85014; 85018; 85027; 86850; 86900; 86901; 97163; 97167; 97530

== ENCOUNTER 2023-12-10 17:59 | Emergency (ER) | payer MEDICARE, OTHER, SELFPAY ==
[2023-12-10 18:05] VITALS: BP 138/84
[2023-12-10 18:08] VITALS: BP 138/84
[2023-12-10 18:11] VITALS: BMI 32.8
[2023-12-10 18:36] LABS: % Basophils 1.2 % (0-2); % Eosinophils 3.6 % (0-6); % Immature Granulocytes 0.6 % (0-0.5); % Lymphocytes 25.3 % (20.5-51.1); % Monocytes 10.2 % (1.7-9.3); % Neutrophils 59.1 % (42.2-75.2); Absolute Basophils 0.1 10^3/uL (0-0.2); Absolute Eosinophils 0.3 10^3/uL (0-0.7); Absolute Immature Granulocytes 0.1 10^3/uL (0-0.05); Absolute Lymphocytes 2.1 10^3/uL (1.2-3.4); Absolute Monocytes 0.8 10^3/uL (0.1-0.6); Absolute Neutrophils 4.8 10^3/uL (1.4-6.5); Hemoglobin 10.9 g/dL (12.0-16.0); Mean Corpuscular Volume 84.8 fL (81.0-99.0); Mean Platelet Volume 8.4 fL (7.4-10.4); Nucleated Red Blood Cells % 0 %; Platelet Count 410 10^3/uL (130-400); Red Blood Cell Count 3.89 10^6/uL (4.20-5.40); Red Cell Dist. Width 15.3 % (11.5-14.5); White Blood Cell Count 8.2 10^3/uL (4.8-10.8)
[2023-12-10 18:46] LABS: Lactic Acid 0.8 mmol/L (0.7-2.0)
[2023-12-10 18:46] LABS: Urine Albumin 1+ (Neg - Trace); Urine Bilirubin Negative (Negative); Urine Character Very Cloudy (Clear); Urine Color Yellow; Urine Glucose Negative (Negative); Urine Ketone Negative (Negative); Urine Leukocyte 2+ (Negative); Urine Nitrite Positive (Negative); Urine Occult Blood 4+ (Negative); Urine Urobilinogen Negative (Neg - 1+)
--- NOTE | 2023-12-10 18:46 | ED.GENMED ---
Addendum entered and electronically signed by Shashi Aguilar PA-C 12/13/23 06:53:
Subjective with urine culture shows greater than 100,000 colony-forming units of gram-negative bacilli. On cefdinir. Sensitivities pending
Original Note:
History of Present Illness
<Debra Grimes PA-C - Last Filed: 12/11/23 11:03>
General
Chief Complaint: Abdominal Pain
Source: patient
Exam Limitations: none
Time Seen by Provider: 12/10/23 18:42
Nursing documentation reviewed up to this point in time: agreed with
History of Present Illness
History of Present Illness:
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
left-sided flank pain. Patient also has burning with urination and urinary frequency with this. She also has associated fatigue. Patient states that she had a left nephrectomy done 2 weeks ago and since than has had worsening pain. Last week, she
was seen in the office by her urologist Dr. Rodas where a small amount of purulent drainage was noted and she was started on doxycycline. A wound culture was performed which came back positive with multiple drug resistant organisms and so the doxy
was stopped and she was put on 2 new different antibiotics. She is currently residing at a nursing home facility and the nursing facility reports that the appearance of the wound has been improving however patient continues to have pain and
family reports a mental status change the past few days. Spoke to daughter reports recent memory loss as well as trailing off of her thoughts over the last day and a half. Normally she is able to expand on information she is asked and is able answer
without difficulty, but now she says 'I don't know, I am just exhausted'. Patient herself denies constipation or diarrhea, fevers or chills, chest pain or shortness of breath.
Past History
<Debra Grimes PA-C - Last Filed: 12/11/23 11:03>
Past History
ED Past Medical History: HTN, Hypercholesterolemia, Psychiatric, Other (lumbar compr fx) and Other (kidney stones)
ED Past Surgical History: Appendectomy, Orthopedic (Right wrist ORIF, vertebraplasty), Tonsilectomy, Urological and Other (Hernia repair, cataract surgery)
Social History
Tobacco: Non-smoker
Alcohol: Occasional
Drug: None
Personal: Single
Living: alone
Employment: Retired
Review of Systems
<Debra Grimes PA-C - Last Filed: 12/11/23 11:03>
Review of Systems
All Other Systems: ROS reviewed and negative except as documented in HPI and ROS
Phy Exam
<Debra Grimes PA-C - Last Filed: 12/11/23 11:03>
Physical Exam
Physical Exam:
General: Patient is well appearing and in no acute distress; non-toxic
Skin: Warm and dry, no rashes or lesions
Head: Normocephalic, atraumatic
Eyes: Sclera non-icteric. EOMs intact. PERRLA.
Cardiac: Regular rate and rhythm, no murmurs
Peripheral Vascular: No lower extremity swelling or edema
Pulm: Normal respiratory effort, breath sounds equal bilaterally, no wheezes, rales, or rhonchi
Abdomen: Mild left upper and left lower abdominal tenderness to palpation. No CVA tenderness.
Neuro: CN II-XII intact, no focal neurologic deficits.
Psychiatric: Appropriate mood and affect.
Course
<Debra Grimes PA-C - Last Filed: 12/11/23 11:03>
Orders/Labs/Results
Orders:
Orders
12/10/23 18:12
Complete Blood Count/With Diff Urgent
Comprehensive Metabolic Panel Urgent
Lactic Acid Urgent
12/10/23 18:26
Urinalysis Reflex To Culture Urgent
Date Specimen was Collected: 12/10/23
Time Specimen was Collected: 18:25
Urine Microscopic Reflex Cult Urgent
Urine Culture Urgent
CARLIE Source: U
Specimen Description:
Date Specimen was Collected: 12/10/23
Time Specimen was Collected: 18:25
12/10/23 18:59
Abdomen/Pelvis wo Contrast CT [CT Abd/pelvis Wo Iv Cont] Urgent
Comment:
Reason For Exam: left flank pain/abdominal pain s/p left nephrectom
12/10/23 21:17
Gentamicin 100 mg/50 ml [Gentamicin] 100 mg in 50 ml IV NOW
Abnormal Lab Results
12/10/23 12/10/23
18:12 18:26
RBC 3.89 L 10^6/uL
(4.20-5.40)
Hgb 10.9 L g/dL
(12.0-16.0)
Hct 33.0 L %
(37.0-47.0)
RDW 15.3 H %
(11.5-14.5)
Plt Count 410 H 10^3/uL
(130-400)
Abs Immat Gran (auto) 0.1 H 10^3/uL
(0-0.05)
Absolute Monos (auto) 0.8 H 10^3/uL
(0.1-0.6)
Immature Gran % 0.6 H %
(0-0.5)
Monocytes % 10.2 H %
(1.7-9.3)
Carbon Dioxide 21 L mmol/L
(22-30)
BUN 35 H mg/dl
(7-17)
Creatinine 1.2 H mg/dL
(0.6-1.0)
Ur Occult Blood Reflex 4+ A
(Negative)
Urine Nitrite (Reflex) Positive A
(Negative)
Leukocyte Esterase Rfl 2+ A
(Negative)
Urine RBC 16-20 A /HPF
(0-2)
Urine WBC (Reflex) >100 A /HPF
(0-5)
Urine Bacteria (Reflex) Few A
(Negative)
Urine Albumin (Reflex) 1+ A
(Neg - Trace)
12/10/23 18:12
12/10/23 18:12
Vital Signs
Initial and Last Documented VS:
Initial Vital Signs
Temp Pulse Resp BP Pulse Ox
98.1 F 63 19 138/84 95
12/10/23 18:05 12/10/23 18:05 12/10/23 18:05 12/10/23 18:05 12/10/23 18:05
Last Documented Vital Signs
Temp Pulse Resp BP Pulse Ox
98.1 F 83 22 110/83 95
12/10/23 18:05 12/10/23 22:22 12/10/23 21:45 12/10/23 21:00 12/10/23 21:45
<Jesus Manuel Bertrand, DO - Last Filed: 12/12/23 08:03>
Orders/Labs/Results
Orders:
Orders
12/10/23 18:12
Complete Blood Count/With Diff Urgent
Comprehensive Metabolic Panel Urgent
Lactic Acid Urgent
12/10/23 18:26
Urinalysis Reflex To Culture Urgent
Date Specimen was Collected: 12/10/23
Time Specimen was Collected: 18:25
Urine Microscopic Reflex Cult Urgent
Urine Culture Urgent
CARLIE Source: U
Specimen Description:
Date Specimen was Collected: 12/10/23
Time Specimen was Collected: 18:25
12/10/23 18:59
Abdomen/Pelvis wo Contrast CT [CT Abd/pelvis Wo Iv Cont] Urgent
Comment:
Reason For Exam: left flank pain/abdominal pain s/p left nephrectom
12/10/23 21:17
Gentamicin 100 mg/50 ml [Gentamicin] 100 mg in 50 ml IV NOW
Abnormal Lab Results
12/10/23 12/10/23
18:12 18:26
RBC 3.89 L 10^6/uL
(4.20-5.40)
Hgb 10.9 L g/dL
(12.0-16.0)
Hct 33.0 L %
(37.0-47.0)
RDW 15.3 H %
(11.5-14.5)
Plt Count 410 H 10^3/uL
(130-400)
Abs Immat Gran (auto) 0.1 H 10^3/uL
(0-0.05)
Absolute Monos (auto) 0.8 H 10^3/uL
(0.1-0.6)
Immature Gran % 0.6 H %
(0-0.5)
Monocytes % 10.2 H %
(1.7-9.3)
Carbon Dioxide 21 L mmol/L
(22-30)
BUN 35 H mg/dl
(7-17)
Creatinine 1.2 H mg/dL
(0.6-1.0)
Ur Occult Blood Reflex 4+ A
(Negative)
Urine Nitrite (Reflex) Positive A
(Negative)
Leukocyte Esterase Rfl 2+ A
(Negative)
Urine RBC 16-20 A /HPF
(0-2)
Urine WBC (Reflex) >100 A /HPF
(0-5)
Urine Bacteria (Reflex) Few A
(Negative)
Urine Albumin (Reflex) 1+ A
(Neg - Trace)
12/10/23 18:12
12/10/23 18:12
Vital Signs
Initial and Last Documented VS:
Initial Vital Signs
Temp Pulse Resp BP Pulse Ox
98.1 F 63 19 138/84 95
12/10/23 18:05 12/10/23 18:05 12/10/23 18:05 12/10/23 18:05 12/10/23 18:05
Last Documented Vital Signs
Temp Pulse Resp BP Pulse Ox
98.1 F 83 22 110/83 95
12/10/23 18:05 12/10/23 22:22 12/10/23 21:45 12/10/23 21:00 12/10/23 21:45
Maria Estherlt;Debra Grimes PA-C - Last Filed: 12/11/23 11:03>
MDM/Problems Addressed
Differential Diagnosis Includes:
Differentials include urinary tract infection, acute cellulitis, intra-abdominal abscess, urosepsis, dementia, delirium
MDM/Problems Addressed:
Urinary symptoms, abdominal pain:
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
left-sided flank pain. Patient also has burning with urination and urinary frequency with this. She also has associated fatigue. Patient states that she had a left nephrectomy done 2 weeks ago and since than has had worsening pain. A few days
ago, patient was seen in the office by her urologist for postsurgical appointment and some purulent drainage was noted from her surgical site which tested positive for multiple drug-resistant organisms.
Patient was then prescribed linezolid and cefdinir to cover these organisms, however her facility was not able to get them and did not know the script. I did contact the pharmacist there as well as patient's daughter to confirm a plan that she would
be able to get these medications. the only IV antibiotic that covers these organisms is gentamicin. Patient was given a dose of gentamicin here in the emergency department prior to discharge. She will start the other 2 medications tomorrow. She
has not yet had a dose of lisinopril with or cefdinir yet. CT ab pelvis negative for any obvious fluid collection but does demonstrate post surgical changes. Reviewed dispo and plan with Dr. Rodas, he is comfortable with going home and seeing her
as an outpatient.
Chronic conditions affecting care:
GERD, IBS, hypertension, hyperlipidemia, history of memory loss, anemia, chronic kidney disease, history of chronic obstructive pyelonephritis
Acute Exacerbation and/or Progression of Chronic Illness:
n/a
<Debra Grimes PA-C - Last Filed: 12/11/23 11:03>
*Pulse Oximetry
Patient hypoxic: no
*Critical Care Note
Total Time (30-74mins, 75-104mins- exclusive of procedures): Not Applicable
Data Reviewed
Review of Other/Old Records Reveals: Records (Reviewed operative report from Dr. Gonsalez on 11/26/2023) and Discharge Summary (Reviewed discharge summary from 11/14/2023)
Source: patient and records
<Debra Grimes PA-C - Last Filed: 12/11/23 11:03>
Patient Management
Discussion with other providers: Winch Operator (Dr. Rodas, urology---reviewed discharge plan)
Escalation/DeEscalation of care consider admission/obs:
Reviewed case with my attending Dr. Bertrand. Patient stable for discharge.
<Debra Grimes PA-C - Last Filed: 12/11/23 11:03>
Update Note
Update Note:
7:45 pm-- attempted to call facililty
ED Attending Note
<Debra Grimse PA-C - Last Filed: 12/11/23 11:03>
-
Portions of this chart may have been created with voice recognition software.� Occasional wrong word or��sound alike� substitutions may have occurred due to the inherent limitations of voice recognition software.
<Jesus Manuel Bertrand DO - Last Filed: 12/12/23 08:03>
ED Attending Note
Patient seen and examined by attending physician: Yes
I performed the substantive portion of visit, reviewed & personally made and approve the management plan that is documented in note by myself or JERAMY.: Yes
I performed a history and physical exam of patient and discussed management with resident, I reviewed resident's note and agree with documented findings and plan of care.: Yes
ED Attending Note:
Very well appearing and surgical sites show no sign of infection.
Discharge Plan
Departure
Patient Disposition: Home (Routine Discharge)
Date of Disposition: 12/10/23
Time of Disposition: 21:37
Patient with high blood pressure during this ER visit?: Yes
Condition: Good
Discharge Problem:
UTI (urinary tract infection), Abdominal pain
Instructions: Urinary Tract Infection, Adult ED, BLOOD PRESSURE
Prescriptions:
New
linezolid 600 mg tablet
600 mg PO BID 7 Days Qty: 14 0RF
cefdinir 300 mg capsule
300 mg PO BID 7 Days Qty: 14 0RF
No Action
melatonin 10 MG tablet
10 mg PO HS
PreserVision AREDS 1 CAP capsule
1 cap PO BID
gabapentin 300 MG capsule
300 mg PO BID
atorvastatin [Lipitor] 10 mg Tablet
10 mg PO HS
propranolol 60 mg Capsule,Extended Release 24 Hr
60 mg PO DAILY
sertraline 100 mg Tablet
100 mg PO DAILY
calcium carbonate [Calcium 600] 600 mg calcium (1,500 mg) Tablet
600 mg PO DAILY
estradiol [Estrace] 0.01 % (0.1 mg/gram) Cream
1 appful VAGINAL Q48H@1999
lutein 20 mg Capsule
20 mg PO DAILY
Refresh Optive 0.5-0.9 % Drops
1 drp BOTH EYES QIDPRN PRN (Reason: DRY EYES)
Patient Comments:
never took per longterm
acetaminophen 325 mg Tablet
650 mg PO Q6HPRN PRN (Reason: mild pain/fever)
sorbitol 70 % Solution
30 ml PO [id number] PRN (Reason: constipation)
primidone 50 mg tablet
75 mg PO HS
polyethylene glycol 3350 [Miralax] 17 gram Powder In Packet
17 g PO DAILYPRN PRN (Reason: Constipation)
Rx Instructions:
daily PRN
bisacodyl [Dulcolax (bisacodyl)] 10 mg Suppository
10 mg [place] DAILYPRN PRN (Reason: constipation)
methylcellulose (laxative) Powder
1 tbsp PO HSPRN PRN (Reason: constipation)
Rx Instructions:
in 6oz fluid
phenazopyridine [Pyridium] 200 mg Tablet
200 mg PO Q8HPRN PRN (Reason: dysuria)
therapeutic multivitamin Tablet
1 tab PO QPM
sennosides-docusate sodium [Stool Softener-Stimulant Laxat] 8.6-50 mg Tablet
1 tab PO BID Qty: 60 0RF
doxycycline hyclate 100 mg capsule
100 mg PO BID
oxycodone 5 mg tablet
5 mg PO Q6HPRN PRN (Reason: moderate to severe pain)
Referrals:
Niraj Nolasco MD [Family Provider] -
Activity Restrictions/Additional Instructions:
Please follow up with your primary care provider and your urologist.
Tomorrow, please begin Linezolid and Cefdinir as directed by Dr. Rodas.
Linezolid: Take one tablet twice daily for 7 days.
Cefdinir: Take one tablet twice daily for 7 days.
Please return to emergency department should you experience any fevers or chills, nausea or vomiting, acute worsening of your symptoms, extension of redness surrounding your wound, chest pain, shortness of breath.
Interventions
Interventions:
*Risk Screen - Suicide Last Done: 12/10/23 18:08
*General Assessment Last Done: 12/10/23 18:08
*Neglect/Abuse Screening Last Done: 12/10/23 18:08
ED- Fall Risk Assessment Last Done: 12/10/23 18:09
*ED COVID-19 Vaccine History Last Done: 12/10/23 18:08
*Nursing Disposition Last Done: 12/10/23 23:17
IC-Bbkxdn-Khcocgrksu Assessment Last Done: 12/10/23 18:09
Discharge Date and Time
Discharge Date/Time: 12/10/23 23:18
Print Language: BHUTANESE
[2023-12-10 18:49] LABS: ALT (SGPT) 11 U/L (0-35); AST (SGOT) 22 U/L (14-36); Albumin 4.2 g/dl (3.5-5.0); Alkaline Phosphatase 89 U/L (38-126); Blood Urea Nitrogen 35 mg/dl (7-17); Calcium 9.6 mg/dl (8.4-10.2); Carbon Dioxide 21 mmol/L (22-30); Chloride 101 mmol/L (98-107); Estimated Creatinine Clearance 34 ml/min; Glucose 98 mg/dl (70-99); Sodium 135 mmol/L (135-145); Total Bilirubin 0.3 mg/dl (0.2-1.3); Total Protein 7.5 g/dl (6.3-8.2); eGFR 45.48
[2023-12-10 18:54] LABS: Urine Squamous Cell >30 /LPF (Few)
[2023-12-10 18:55] LABS: Urine Bacteria Few (Negative); Urine Red Blood Cell 16-20 /HPF (0-2); Urine White Cell >100 /HPF (0-5)
[2023-12-10 19:00] VITALS: BP 130/120
[2023-12-10 20:00] VITALS: BP 145/74
[2023-12-10 21:00] VITALS: BP 110/83
[2023-12-10] MEDS: GENTAMICIN 50 IV (22:04)
== END 2023-12-10 23:18 | disposition home or self-care (01) ==
LOC: EMR 17:59
PROVIDERS: EMERGENCY PHYSICIAN Emergency Medicine; FAMILY PHYSICIAN Internal Medicine
DX: N39.0 Urinary tract infection, site not specified (principal); R10.9 Unspecified abdominal pain; R53.83 Other fatigue; R41.82 Altered mental status, unspecified; E78.00 Pure hypercholesterolemia, unspecified; I12.9 Hypertensive chronic kidney disease with stage 1 through stage 4 chronic kidney disease, or unspecified chronic kidney disease; N18.9 Chronic kidney disease, unspecified; K21.9 Gastro-esophageal reflux disease without esophagitis; K58.9 Irritable bowel syndrome, unspecified; D63.1 Anemia in chronic kidney disease; Z87.442 Personal history of urinary calculi; Z98.890 Other specified postprocedural states; Z90.5 Acquired absence of kidney; Z91.013 Allergy to seafood
CPT/HCPCS: 99284; 96365; 74176; 80053; 81003; 81015; 83605; 85025; 87077; 87086; 87186; J1580

== ENCOUNTER 2023-12-20 16:00 | Emergency (ER) | payer MEDICARE, OTHER, SELFPAY ==
[2023-12-20 16:04] VITALS: BP 118/83
[2023-12-20 16:20] VITALS: BMI 34.4
[2023-12-20 17:00] VITALS: BP 108/74
[2023-12-20 17:00] LABS: Urine Albumin 1+ (Neg - Trace); Urine Bilirubin 2+ (Negative); Urine Character Very Cloudy (Clear); Urine Glucose Negative (Negative); Urine Ketone Negative (Negative); Urine Leukocyte 2+ (Negative); Urine Nitrite Positive (Negative); Urine Occult Blood 3+ (Negative); Urine Specific Gravity 1.015 (<1.030); Urine Urobilinogen 3+ (Neg - 1+)
[2023-12-20 17:01] LABS: Urine Color Orange
[2023-12-20 17:03] LABS: % Basophils 0.7 % (0-2); % Eosinophils 5.6 % (0-6); % Immature Granulocytes 0.3 % (0-0.5); % Lymphocytes 25.6 % (20.5-51.1); % Monocytes 8.9 % (1.7-9.3); % Neutrophils 58.9 % (42.2-75.2); Absolute Basophils 0.1 10^3/uL (0-0.2); Absolute Eosinophils 0.4 10^3/uL (0-0.7); Absolute Lymphocytes 1.7 10^3/uL (1.2-3.4); Absolute Monocytes 0.6 10^3/uL (0.1-0.6); Hematocrit 32.9 % (37.0-47.0); Hemoglobin 10.7 g/dL (12.0-16.0); Mean Corp Hgb Conc. 32.5 g/dL (33.0-37.0); Mean Corpuscular Hgb 28.5 pg (27.0-31.0); Mean Corpuscular Volume 87.7 fL (81.0-99.0); Mean Platelet Volume 9.7 fL (7.4-10.4); Nucleated Red Blood Cells % 0 %; Platelet Count 197 10^3/uL (130-400); Red Blood Cell Count 3.75 10^6/uL (4.20-5.40); White Blood Cell Count 6.8 10^3/uL (4.8-10.8)
[2023-12-20 17:12] LABS: Urine Mucus Few
[2023-12-20 17:13] LABS: Urine Bacteria Moderate (Negative); Urine White Cell 26-30 /HPF (0-5)
--- NOTE | 2023-12-20 17:45 | ED.GENMED ---
History of Present Illness
General
Chief Complaint: Weakness
Time Seen by Provider: 12/20/23 16:20
History of Present Illness
History of Present Illness:
83-year-old female presents emergency department for evaluation of painful urination, generalized weakness, and lethargy beginning 2 days ago. She is status post left nephrectomy and had a ureteral stent on the right after hydronephrosis that was
removed 2 days prior to the onset of the symptoms. Coincidentally she was diagnosed with a UTI 10 days ago and finished her course antibiotics on the same day that her ureteral stent was removed. Denies any fever
Past History
Past History
ED Past Medical History: HTN, Hypercholesterolemia, Psychiatric, Other (lumbar compr fx) and Other (kidney stones)
ED Past Surgical History: Appendectomy, Orthopedic (Right wrist ORIF, vertebraplasty), Tonsilectomy, Urological and Other (Hernia repair, cataract surgery)
Social History
Tobacco: Non-smoker
Alcohol: Occasional
Drug: None
Personal: Single
Living: alone
Employment: Retired
Review of Systems
Review of Systems
Allergies reviewed?: Yes
All Other Systems: ROS reviewed and negative except as documented in HPI and ROS
Phy Exam
Physical Exam
Physical Exam:
GEN: Well appearing, NAD, WDWN
HEENT: Oral mucosa moist, no scleral icterus
Cardiac: Regular rate
Lung: No respiratory distress, no tachypnea
MSK: No gross deformity or injuries
Skin: Good color, no pallor or jaundice, no rashes
Neuro: AO x3, moves all extremities freely
Psych: Calm, cooperative
Course
Orders/Labs/Results
Orders:
Orders
12/20/23 16:17
EKG [Electrocardiogram (*1)] Urgent
Reason for Study: Fatigue / Weakness
EKG- Treatment ONCE
12/20/23 16:41
Basic Metabolic Panel Urgent
Comment: BMP NO K
Complete Blood Count/With Diff Urgent
UA Reflex to Culture [Urinalysis Reflex To Culture] Urgent
Date Specimen was Collected: 12/20/23
Time Specimen was Collected: 16:18
Urine Microscopic Reflex Cult Urgent
Urine Culture Urgent
CARLIE Source: U
Specimen Description:
Date Specimen was Collected: 12/20/23
Time Specimen was Collected: 16:18
12/20/23 18:19
Ampicillin/Sulbactam 3 G [Unasyn] 3 gm 0.9% Sodium Chloride 100 ml [Nss] 100 ml IV NOW
Abnormal Lab Results
12/20/23
16:41
RBC 3.75 L 10^6/uL
(4.20-5.40)
Hgb 10.7 L g/dL
(12.0-16.0)
Hct 32.9 L %
(37.0-47.0)
MCHC 32.5 L g/dL
(33.0-37.0)
RDW 16.0 H %
(11.5-14.5)
Sodium 134 L mmol/L
(135-145)
BUN 30 H mg/dl
(7-17)
Creatinine 1.4 H mg/dL
(0.6-1.0)
Ur Occult Blood Reflex 3+ A
(Negative)
Urine Nitrite (Reflex) Positive A
(Negative)
Urine Bilirubin 2+ A
(Negative)
Urine Urobilinogen 3+ A
(Neg - 1+)
Leukocyte Esterase Rfl 2+ A
(Negative)
Urine RBC 3-6 A /HPF
(0-2)
Urine WBC (Reflex) 26-30 A /HPF
(0-5)
Urine Bacteria (Reflex) Moderate A
(Negative)
Urine Albumin (Reflex) 1+ A
(Neg - Trace)
12/20/23 16:41
12/20/23 16:41
Vital Signs
Initial and Last Documented VS:
Initial Vital Signs
Temp Pulse Resp BP Pulse Ox
97.8 F 70 18 118/83 93
12/20/23 16:04 12/20/23 16:04 12/20/23 16:04 12/20/23 16:04 12/20/23 16:04
Last Documented Vital Signs
Temp Pulse Resp BP Pulse Ox
97.8 F 70 18 118/83 93
12/20/23 16:04 12/20/23 16:04 12/20/23 16:04 12/20/23 16:04 12/20/23 16:04
MDM/Problems Addressed
MDM/Problems Addressed:
So out patient's urinalysis is highly suspicious for UTI which is likely due to recent instrumentation/removal of stent. Her last urine culture grew E. coli however given recent exposure to cefdinir will switch to Augmentin, initial dose of Unasyn
given in the emergency department. She is suitable for discharge back to her intermediate facility
*Critical Care Note
Total Time (30-74mins, 75-104mins- exclusive of procedures): Not Applicable
ED Attending Note
-
Portions of this chart may have been created with voice recognition software.� Occasional wrong word or��sound alike� substitutions may have occurred due to the inherent limitations of voice recognition software.
Discharge Plan
Departure
Patient Disposition: Home (Routine Discharge)
Date of Disposition: 12/20/23
Time of Disposition: 17:56
Patient with high blood pressure during this ER visit?: No
Discharge Problem:
Urinary tract infection
Instructions: Urinary Tract Infection, Adult ED
Prescriptions:
New
amoxicillin-pot clavulanate 875-125 mg tablet
1 tab PO BID Qty: 14 0RF
No Action
melatonin 10 MG tablet
10 mg PO HS
PreserVision AREDS 1 CAP capsule
1 cap PO BID
gabapentin 300 MG capsule
300 mg PO BID
atorvastatin [Lipitor] 10 mg Tablet
10 mg PO HS
propranolol 60 mg Capsule,Extended Release 24 Hr
60 mg PO DAILY
sertraline 100 mg Tablet
100 mg PO DAILY
calcium carbonate [Calcium 600] 600 mg calcium (1,500 mg) Tablet
600 mg PO DAILY
estradiol [Estrace] 0.01 % (0.1 mg/gram) Cream
1 appful VAGINAL Q48H@1999
lutein 20 mg Capsule
20 mg PO DAILY
Refresh Optive 0.5-0.9 % Drops
1 drp BOTH EYES QIDPRN PRN (Reason: DRY EYES)
Patient Comments:
[facility] took [facility]
acetaminophen 325 mg Tablet
650 mg PO Q6HPRN PRN (Reason: mild pain/fever)
sorbitol 70 % Solution
30 ml PO [id number] PRN (Reason: constipation)
primidone 50 mg tablet
75 mg PO HS
polyethylene glycol 3350 [Miralax] 17 gram Powder In Packet
17 g PO DAILYPRN PRN (Reason: Constipation)
Rx Instructions:
daily PRN
bisacodyl [Dulcolax (bisacodyl)] 10 mg Suppository
10 mg [place] DAILYPRN PRN (Reason: constipation)
methylcellulose (laxative) Powder
1 tbsp PO HSPRN PRN (Reason: constipation)
Rx Instructions:
in 6oz fluid
phenazopyridine [Pyridium] 200 mg Tablet
200 mg PO Q8HPRN PRN (Reason: dysuria)
therapeutic multivitamin Tablet
1 tab PO QPM
sennosides-docusate sodium [Stool Softener-Stimulant Laxat] 8.6-50 mg Tablet
1 tab PO BID Qty: 60 0RF
doxycycline hyclate 100 mg capsule
100 mg PO BID
oxycodone 5 mg tablet
5 mg PO Q6HPRN PRN (Reason: moderate to severe pain)
linezolid 600 mg tablet
600 mg PO BID 7 Days Qty: 14 0RF
cefdinir 300 mg capsule
300 mg PO BID 7 Days Qty: 14 0RF
Referrals:
UNKNOWN - PT NOT,INTERVIEWE [Family Provider] -
Interventions
Interventions:
*Risk Screen - Suicide Last Done: 12/20/23 16:20
*General Assessment Last Done: 12/20/23 16:20
*ED COVID-19 Vaccine History Last Done: 12/20/23 16:20
Discharge Date and Time
Print Language: MARSHALLESE
[2023-12-20 17:49] LABS: Blood Urea Nitrogen 30 mg/dl (7-17); Calcium 9.1 mg/dl (8.4-10.2); Carbon Dioxide 22 mmol/L (22-30); Chloride 105 mmol/L (98-107); Estimated Creatinine Clearance 30 ml/min; Glucose 87 mg/dl (70-99); Sodium 134 mmol/L (135-145)
[2023-12-20 18:00] VITALS: BP 107/65
[2023-12-20] MEDS: UNASYN IV (18:39)
[2023-12-20 19:00] VITALS: BP 117/77
== END 2023-12-20 21:09 | disposition home or self-care (01) ==
LOC: EMR 16:00
PROVIDERS: EMERGENCY PHYSICIAN Emergency Medicine
DX: N39.0 Urinary tract infection, site not specified (principal); I10 Essential (primary) hypertension; E78.00 Pure hypercholesterolemia, unspecified; Z87.442 Personal history of urinary calculi; Z98.890 Other specified postprocedural states; Z90.5 Acquired absence of kidney; Z91.013 Allergy to seafood
CPT/HCPCS: 99284; 96374; 80048; 81003; 81015; 85025; 87086; 87088; 87186; 93005

== ENCOUNTER → 2024-07-12 12:05 | Outpatient (REF) | payer MEDICARE, OTHER, SELFPAY | LOC: HWCARD 12:05 | PROVIDERS: ATTENDING PHYSICIAN Pain Medicine Interventional Pain Medicine; FAMILY PHYSICIAN Nurse Practitioner Adult Health | DX: Z01.818 Encounter for other preprocedural examination (principal) | CPT/HCPCS: 93005 ==

== ENCOUNTER → 2024-09-09 11:18 | Outpatient (REF) | payer MEDICARE, OTHER, SELFPAY | LOC: HWRAD 11:18 | PROVIDERS: ATTENDING PHYSICIAN Urology; FAMILY PHYSICIAN Nurse Practitioner Adult Health | DX: N20.0 Calculus of kidney (principal) | CPT/HCPCS: 76775 ==

== ENCOUNTER → 2025-03-17 12:15 | Outpatient (REF) | payer MEDICARE, OTHER, SELFPAY | LOC: HWCARD 12:15 | PROVIDERS: ATTENDING PHYSICIAN Pain Medicine Interventional Pain Medicine; FAMILY PHYSICIAN Nurse Practitioner Adult Health | DX: Z01.818 Encounter for other preprocedural examination (principal) | CPT/HCPCS: 93005 ==